=== PATIENT | male | born 1975 | race Hispanic/Latino ===

== ENCOUNTER 2019-11-07 20:07 | Inpatient (IN) | payer OTHER, SELFPAY ==
[~2019-11-07] VITALS: Ht 165.1 cm; Wt 57.7 kg
[2019-11-07 20:39] LABS: BASOPHILS % (AUTO) 0.2 % (0.0-5.0); EOSINOPHILS % (AUTO) 1.6 % (0.0-8.0); HEMATOCRIT 34.1 % (42-54); LYMPHOCYTES % (AUTO) 18.5 % (21.0-51.0); MEAN CORPUSCULAR HEMOGLOBIN 28.3 pg (27.0-33.0); MEAN CORPUSCULAR HGB CONC 33.4 g/dL (32.0-36.0); MEAN CORPUSCULAR VOLUME 84.6 fL (79-99); NEUTROPHILS % (AUTO) 67.3 % (40.0-77.0); PLATELET COUNT (AUTO) 514 K/uL (130-400); RED BLOOD CELL COUNT(AUTO) 4.03 MIL/uL (4.50-6.20); RED CELL DISTRIBUTION WIDTH 11.9 % (11.0-15.5)
[2019-11-07 20:49] LABS: ALBUMIN 2.1 g/dL (3.5-5.0); BILIRUBIN,TOTAL 0.3 mg/dL (0.2-1.0); POTASSIUM 4.7 mmol/L (3.5-5.1); TOTAL PROTEIN, SERUM 7.7 g/dL (6.0-8.3)
[2019-11-07] MEDS ORDERED: INSULIN HUMULIN R 100 UNIT/ML 3ML ONE (21:15)
[2019-11-07] MEDS ORDERED: LORAZEPAM 2 MG/ML 1 ML VIAL ONE (22:52)
[2019-11-07 23:52] LABS: APPEARANCE,URINE Clear (CLEAR); BILIRUBIN,URINE Negative (NEGATIVE); COLOR,URINE Yellow (YELLOW); GLUCOSE, URINE (UA) >=1000 mg/dL (NEGATIVE); KETONES,URINE 15 mg/dL (NEGATIVE); LEUKOCYTE ESTERASE ,URINE Negative (NEGATIVE); NITRATE,URINE Negative (NEGATIVE); OCCULT BLOOD,URINE Negative (NEGATIVE); PROTEIN,URINE Negative (NEGATIVE)
[2019-11-07 23:59] LABS: AMPHET/METH SCREEN,URINE NEGATIVE (NEGATIVE); BARBITURATE SCREEN, URINE NEGATIVE (NEGATIVE); BENZODIAZEPINES SCREEN,URINE NEGATIVE (NEGATIVE); CANNABINOID SCREEN,URINE NEGATIVE (NEGATIVE); COCAINE SCREEN,URINE NEGATIVE (NEGATIVE); OPIATE SCREEN,URINE NEGATIVE (NEGATIVE); PHENCYCLIDINE SCREEN,URINE NEGATIVE (NEGATIVE)
[2019-11-08] VITALS (8 sets, daily range): BP systolic 63–146; BP diastolic 34–96
[2019-11-08 00:34] LABS: BACTERIA,URINE Rare /HPF (None Seen); SQUAMOUS EPITHELIAL CELL,UR None Seen /HPF (0-2); WBC,URINE 0-1 /HPF (0-1)
[2019-11-08] MEDS ORDERED: GLUCAGON 1MG KIT 1 MG ML IM PRN (03:15)
[2019-11-08] MEDS ORDERED: ALBUMIN (HUMAN) 25% 50 ML IV SCH (03:15)
[2019-11-08] MEDS ORDERED: ONDANSETRON HCL 4 MG/2 ML VIAL IV PRN (03:15)
[2019-11-08] MEDS ORDERED: DEXTROSE 50%-WATER 50 ML DISP.SYRIN IV PRN ×2 (03:15→05:15)
[2019-11-08 03:47] LABS: BASOPHILS % (AUTO) 0.3 % (0.0-5.0); EOSINOPHILS % (AUTO) 2.3 % (0.0-8.0); HEMATOCRIT 30.1 % (42-54); LYMPHOCYTES % (AUTO) 27.5 % (21.0-51.0); MEAN CORPUSCULAR HEMOGLOBIN 28.5 pg (27.0-33.0); MEAN CORPUSCULAR HGB CONC 33.6 g/dL (32.0-36.0); MEAN CORPUSCULAR VOLUME 84.8 fL (79-99); MONOCYTES % (AUTO) 12.5 % (3.0-13.0); NEUTROPHILS % (AUTO) 56.9 % (40.0-77.0); PLATELET COUNT (AUTO) 495 K/uL (130-400); RED BLOOD CELL COUNT(AUTO) 3.55 MIL/uL (4.50-6.20); RED CELL DISTRIBUTION WIDTH 11.9 % (11.0-15.5); WHITE BLOOD COUNT (AUTO) 3.9 K/uL (4.8-10.8)
[2019-11-08 04:16] LABS: ALBUMIN 1.6 g/dL (3.5-5.0); BILIRUBIN,TOTAL 0.3 mg/dL (0.2-1.0); CREATININE 0.6 mg/dL (0.5-1.5); POTASSIUM 3.5 mmol/L (3.5-5.1); THYROID STIMULATING HORMONE 1.24 uIU/mL (0.36-3.74); TOTAL PROTEIN, SERUM 6.3 g/dL (6.0-8.3)
[2019-11-08] MEDS: INSULIN HUMULIN R 100 UNIT/ML 3ML SQ SCH ×4 (06:27→21:26)
[2019-11-08] MEDS: SODIUM CHLORIDE 0.9% 1000ML 1,000 ML IV SCH ×5 (06:27→16:35)
[2019-11-08] MEDS ORDERED: INSULIN HUMULIN R 100 UNIT/ML 3ML SQ SCH (07:30)
[2019-11-08] MEDS: FAMOTIDINE/PF 20 MG/2 ML VIAL IV SCH ×2 (09:04→21:25)
[2019-11-08] MEDS: ASPIRIN 81MG TAB.CHEW PO SCH (09:04)
[2019-11-08] MEDS: LOPERAMIDE HCL 2 MG CAP PO SCH (13:57)
[2019-11-09] VITALS (7 sets, daily range): BP systolic 63–155; BP diastolic 37–103
[2019-11-09] MEDS: SODIUM CHLORIDE 0.9% 1000ML 1,000 ML IV SCH ×2 (05:44→19:15)
[2019-11-09] MEDS: INSULIN HUMULIN R 100 UNIT/ML 3ML SQ SCH ×4 (06:34→21:33)
[2019-11-09] MEDS: ASPIRIN 81MG TAB.CHEW PO SCH (08:45)
[2019-11-09] MEDS: FAMOTIDINE/PF 20 MG/2 ML VIAL IV SCH ×2 (08:45→21:34)
[2019-11-09] MEDS ORDERED: SODIUM CHLORIDE 0.9% 1000ML 1,000 ML IV SCH ×2 (11:15→11:30)
[2019-11-09 11:29] LABS: BASOPHILS % (AUTO) 0.4 % (0.0-5.0); EOSINOPHILS % (AUTO) 1.3 % (0.0-8.0); HEMATOCRIT 30.2 % (42-54); LYMPHOCYTES % (AUTO) 34.5 % (21.0-51.0); MEAN CORPUSCULAR HEMOGLOBIN 28.2 pg (27.0-33.0); MEAN CORPUSCULAR HGB CONC 32.8 g/dL (32.0-36.0); MONOCYTES % (AUTO) 11.4 % (3.0-13.0); PLATELET COUNT (AUTO) 508 K/uL (130-400); RED BLOOD CELL COUNT(AUTO) 3.51 MIL/uL (4.50-6.20); WHITE BLOOD COUNT (AUTO) 4.5 K/uL (4.8-10.8)
[2019-11-09 11:39] LABS: ALBUMIN 1.9 g/dL (3.5-5.0); BILIRUBIN,TOTAL 0.2 mg/dL (0.2-1.0); CREATININE 0.8 mg/dL (0.5-1.5); POTASSIUM 3.8 mmol/L (3.5-5.1); TOTAL PROTEIN, SERUM 6.8 g/dL (6.0-8.3)
[2019-11-09] MEDS: LOPERAMIDE HCL 2 MG CAP PO SCH (11:45)
[2019-11-10] MEDS: INSULIN HUMULIN R 100 UNIT/ML 3ML SQ SCH ×4 (05:53→21:20)
[2019-11-10] MEDS ORDERED: LOPERAMIDE HCL 2 MG CAP PO PRN (06:15)
[2019-11-10 08:00] VITALS: BP 110/69
[2019-11-10] MEDS: ASPIRIN 81MG TAB.CHEW PO SCH (08:22)
[2019-11-10] MEDS: FAMOTIDINE/PF 20 MG/2 ML VIAL IV SCH ×2 (08:22→21:59)
[2019-11-10] MEDS: SODIUM CHLORIDE 0.9% 1000ML 1,000 ML IV SCH ×2 (09:20→21:59)
[2019-11-10 11:00] VITALS: BP_SYST 130; BP_SYST 159; BP_SYST 75; BP_DIAS 103; BP_DIAS 37; BP_DIAS 66
[2019-11-10 16:00] VITALS: BP 86/55
[2019-11-10 20:20] VITALS: BP_SYST 126; BP_SYST 76; BP_SYST 85; BP_DIAS 38; BP_DIAS 50; BP_DIAS 89
[2019-11-11 00:20] VITALS: BP 115/78
[2019-11-11] MEDS ORDERED: PHARMACY COMMUNICATION MISC SCH ×2 (02:15→03:30)
[2019-11-11] MEDS ORDERED: ERGOCALCIFEROL (VITAMIN D2) 50,000 UNIT CAPSULE PO ONE (02:15)
[2019-11-11] MEDS ORDERED: DOXYCYCLINE 100MG+NS 250ML IV SCH (03:00)
[2019-11-11] MEDS ORDERED: DOXYCYCLINE HYCLATE 100 MG TABLET PO ONE (03:14)
[2019-11-11] MEDS: CEFTRIAXONE SODIUM 1 GM IVP SCH ×2 (03:20→14:01)
[2019-11-11 04:20] VITALS: BP 118/81
[2019-11-11] MEDS: INSULIN LISPRO 100 UNIT/ML 3ML SQ SCH ×3 (06:31→17:14)
[2019-11-11] MEDS: INSULIN HUMULIN R 100 UNIT/ML 3ML SQ SCH ×4 (06:31→22:17)
[2019-11-11] MEDS ORDERED: METF-444 PO (06:40)
[2019-11-11] MEDS ORDERED: INSU3INS5 SQ (06:43)
[2019-11-11] MEDS ORDERED: AEC81 PO (06:43)
[2019-11-11 07:45] VITALS: BP 129/81
[2019-11-11 07:56] LABS: BASOPHILS % (AUTO) 0.2 % (0.0-5.0); EOSINOPHILS % (AUTO) 0.7 % (0.0-8.0); HEMATOCRIT 30.4 % (42-54); LYMPHOCYTES % (AUTO) 37.2 % (21.0-51.0); MEAN CORPUSCULAR HEMOGLOBIN 28.3 pg (27.0-33.0); MEAN CORPUSCULAR HGB CONC 33.6 g/dL (32.0-36.0); MEAN CORPUSCULAR VOLUME 84.4 fL (79-99); MONOCYTES % (AUTO) 8.5 % (3.0-13.0); NEUTROPHILS % (AUTO) 53.2 % (40.0-77.0); PLATELET COUNT (AUTO) 496 K/uL (130-400); RED CELL DISTRIBUTION WIDTH 11.9 % (11.0-15.5); WHITE BLOOD COUNT (AUTO) 4.5 K/uL (4.8-10.8)
[2019-11-11] MEDS ORDERED: IVERMECTIN 3 MG TAB PO SCH (08:00)
[2019-11-11 08:23] LABS: ALBUMIN 2.1 g/dL (3.5-5.0); BILIRUBIN,TOTAL 0.1 mg/dL (0.2-1.0); CREATININE 0.8 mg/dL (0.5-1.5); POTASSIUM 3.6 mmol/L (3.5-5.1); TOTAL PROTEIN, SERUM 6.8 g/dL (6.0-8.3)
[2019-11-11] MEDS ORDERED: ERGOCALCIFEROL (VITAMIN D2) 50,000 UNIT CAPSULE PO SCH (09:00)
[2019-11-11] MEDS ORDERED: ENOXAPARIN SODIUM 40 MG/0.4 ML SYRINGE SQ SCH (09:00)
[2019-11-11] MEDS: ASCORBIC ACID 500 MG TAB PO SCH (09:53)
[2019-11-11] MEDS: FAMOTIDINE/PF 20 MG/2 ML VIAL IV SCH ×2 (09:53→22:02)
[2019-11-11] MEDS: METHYLPREDNISOLONE SOD SUCC 40MG/ML 1ML IVP SCH ×3 (09:53→22:02)
[2019-11-11] MEDS: ZINC SULFATE 220 CAPSULE PO SCH (09:53)
[2019-11-11 11:00] VITALS: BP 135/88
[2019-11-11 16:00] VITALS: BP 99/68
[2019-11-11 20:24] VITALS: BP_SYST 110; BP_SYST 71; BP_SYST 98; BP_DIAS 38; BP_DIAS 65; BP_DIAS 78
[2019-11-11] MEDS ORDERED: INSULIN GLARGINE 100 UNITS/ML 10 ML VIAL SQ SCH (21:00)
[2019-11-11] MEDS ORDERED: ENOXAPARIN SODIUM 1 MG/KG SQ SCH (21:00)
[2019-11-11] MEDS: ENOXAPARIN SODIUM 60 MG/0.6 ML SQ SCH (22:02)
[2019-11-11] MEDS: DOXYCYCLINE HYCLATE 100 MG TABLET PO SCH (22:02)
[2019-11-12] VITALS (7 sets, daily range): BP systolic 123–164; BP diastolic 84–111
[2019-11-12] MEDS: CEFTRIAXONE SODIUM 1 GM IVP SCH ×2 (02:18→14:31)
[2019-11-12] MEDS: INSULIN HUMULIN R 100 UNIT/ML 3ML SQ SCH ×3 (06:25→16:26)
[2019-11-12] MEDS: INSULIN LISPRO 100 UNIT/ML 3ML SQ SCH ×3 (06:25→16:26)
[2019-11-12 07:39] LABS: HEMATOCRIT 30.3 % (42-54); LYMPHOCYTES % (AUTO) 14.6 % (21.0-51.0); MEAN CORPUSCULAR HEMOGLOBIN 27.8 pg (27.0-33.0); MEAN CORPUSCULAR VOLUME 84.2 fL (79-99); MONOCYTES % (AUTO) 4.6 % (3.0-13.0); NEUTROPHILS % (AUTO) 80.4 % (40.0-77.0); PLATELET COUNT (AUTO) 516 K/uL (130-400); RED CELL DISTRIBUTION WIDTH 12.1 % (11.0-15.5); WHITE BLOOD COUNT (AUTO) 7.2 K/uL (4.8-10.8)
[2019-11-12] MEDS ORDERED: IOHEXOL 350 MG/ML 100ML INFUS..BTL IV ONE (07:43)
[2019-11-12 07:55] LABS: ALBUMIN 2.3 g/dL (3.5-5.0); BILIRUBIN,TOTAL 0.2 mg/dL (0.2-1.0); CREATININE 0.8 mg/dL (0.5-1.5); POTASSIUM 4.2 mmol/L (3.5-5.1)
[2019-11-12 08:46] LABS: CRP QUANTITATIVE 14.2 mg/L (0.00-9.0)
[2019-11-12] MEDS: METHYLPREDNISOLONE SOD SUCC 40MG/ML 1ML IVP SCH ×2 (08:46→14:31)
[2019-11-12] MEDS: FAMOTIDINE/PF 20 MG/2 ML VIAL IV SCH (08:46)
[2019-11-12] MEDS: ZINC SULFATE 220 CAPSULE PO SCH (08:46)
[2019-11-12] MEDS: ASCORBIC ACID 500 MG TAB PO SCH (08:46)
[2019-11-12] MEDS: DOXYCYCLINE HYCLATE 100 MG TABLET PO SCH (08:46)
[2019-11-12] MEDS: ENOXAPARIN SODIUM 60 MG/0.6 ML SQ SCH (08:47)
[2019-11-12] MEDS ORDERED: ASCO500T10 PO (16:06)
[2019-11-12] MEDS ORDERED: DEXA6TAB7 PO (16:06)
[2019-11-12] MEDS ORDERED: DOXY100C40 PO (16:06)
[2019-11-12] MEDS ORDERED: ZINC220C6 PO (16:06)
[2019-11-12] MEDS ORDERED: ALBU8.5H8 IH (16:06)
== END 2019-11-12 17:30 | disposition home or self-care (01) | DRG 312 ==
LOC: EDH 20:07 → EDHIP 20:08 → 3AH 11-08 04:51
PROVIDERS: ADMIT Hospitalist; ATTEND Hospitalist
DX: I95.1 Orthostatic hypotension (principal); U07.1 COVID-19; J12.89 Other viral pneumonia; E87.1 Hypo-osmolality and hyponatremia; E11.65 Type 2 diabetes mellitus with hyperglycemia; R29.6 Repeated falls; D47.3 Essential (hemorrhagic) thrombocythemia
CPT/HCPCS: 36415; 70450; 71045; 71275; 80053; 80061; 80305; 81001; 82728; 82948; 83036; 83615; 84145; 84443; 84484; 85025; 85378; 86140; 86701; 86850; 86900; 86901; 87390; 87426; 93005; 93306; 93880; G0378; J0696; J1650; J1815; J2060; J2920; J3490; J7030; Q9967; U0003

== ENCOUNTER 2020-03-10 17:49 | Emergency (ER) | payer OTHER ==
[~2020-03-10 17:49] MED LIST: AEC81 PO; ALBU8.5H8 IH; ASCO500T10 PO; DEXA6TAB7 PO; DOXY100C40 PO; INSU3INS5 SQ; METF-444 PO; ZINC220C6 PO
[2020-03-10] MEDS ORDERED: KETOROLAC TROMETHAMINE 60 MG/2 ML VIAL ONE (18:57)
== END 2020-03-10 19:55 | disposition home or self-care (01) ==
LOC: EDH 17:49
DX: R07.82 Intercostal pain (principal); R10.11 Right upper quadrant pain; E11.9 Type 2 diabetes mellitus without complications; Z90.49 Acquired absence of other specified parts of digestive tract
CPT/HCPCS: 71101; 93005; 96372; 99283; J1885

== ENCOUNTER 2020-03-16 23:16 | Inpatient (IN) | payer OTHER ==
[~2020-03-16] VITALS: Ht 157.5 cm; Wt 66.8 kg
[2020-03-17 00:19] LABS: ABG OXYGEN SATURATION 83.9 % (95.0-99.0); BASE EXCESS,VENOUS BLOOD GAS -22.1 (-2.0-3.0); HCO3,VENOUS BLOOD GAS 5.9 (21.0-28.0); PCO2,VENOUS BLOOD GAS 20 (35-48); PH,VENOUS BLOOD GAS 7.088 (7.350-7.450)
[2020-03-17] MEDS ORDERED: SODIUM CHLORIDE 0.9% 1000ML 1,000 ML IV ONE ×2 (00:26→01:50)
[2020-03-17] MEDS ORDERED: ONDANSETRON HCL 4 MG/2 ML VIAL ONE ×2 (00:26→10:11)
[2020-03-17 00:31] LABS: BASOPHILS % (AUTO) 0.1 % (0.0-5.0); HEMATOCRIT 35.9 % (42-54); LYMPHOCYTES % (AUTO) 4.5 % (21.0-51.0); MEAN CORPUSCULAR HEMOGLOBIN 27.6 pg (27.0-33.0); MEAN CORPUSCULAR HGB CONC 30.6 g/dL (32.0-36.0); MEAN CORPUSCULAR VOLUME 90.2 fL (79-99); MONOCYTES % (AUTO) 5.8 % (3.0-13.0); NEUTROPHILS % (AUTO) 88.9 % (40.0-77.0); PLATELET COUNT (AUTO) 377 K/uL (130-400); RED BLOOD CELL COUNT(AUTO) 3.98 MIL/uL (4.50-6.20); RED CELL DISTRIBUTION WIDTH 12.8 % (11.0-15.5); WHITE BLOOD COUNT (AUTO) 10.1 K/uL (4.8-10.8)
[2020-03-17 00:51] LABS: CREATININE 1.9 mg/dL (0.5-1.5); POTASSIUM 5.4 mmol/L (3.5-5.1)
[2020-03-17 00:55] LABS: ALBUMIN 2.3 g/dL (3.5-5.0); BILIRUBIN,TOTAL 0.4 mg/dL (0.2-1.0); TOTAL PROTEIN, SERUM 8.3 g/dL (6.0-8.3)
[2020-03-17] MEDS ORDERED: INSULIN HUMULIN R 100 UNIT/ML 3ML ONE (01:49)
[2020-03-17] MEDS ORDERED: SODIUM CHLORIDE 0.9% 100 ML IV ONE (01:50)
[2020-03-17] MEDS ORDERED: MORPHINE SULFATE 2 MG/ML 1ML SYG IV PRN (04:00)
[2020-03-17] MEDS ORDERED: INSULIN REGULAR, HUMAN 3ML 100 UNIT in SODIUM CHLORIDE 0.9% 99 ML IV PRN ×2 (04:15)
[2020-03-17] MEDS ORDERED: CEFTRIAXONE SODIUM 1 GM ONE (04:38)
[2020-03-17] MEDS ORDERED: DEXTROSE 5 %-0.45 % NACL 1,000 ML IV PRN (07:30)
[2020-03-17] MEDS ORDERED: POTASSIUM CHLORIDE 10MEQ/100ML 100 ML IV PRN (07:30)
[2020-03-17] MEDS ORDERED: FAMOTIDINE/PF 20 MG/2 ML VIAL IV ONE (08:18)
[2020-03-17 08:20] LABS: BASE EXCESS,VENOUS BLOOD GAS -10.5 (-2.0-3.0); PCO2,VENOUS BLOOD GAS 32 (35-48); PH,VENOUS BLOOD GAS 7.291 (7.350-7.450)
[2020-03-17 08:33] LABS: POTASSIUM 3.7 mmol/L (3.5-5.1)
[2020-03-17] MEDS ORDERED: DEXTROSE 5 %-0.45 % NACL 1,000 ML IV ONE (10:36)
[2020-03-17] MEDS ORDERED: MAGNESIUM CITRATE 296 ML SOLUTION ONE (10:49)
[2020-03-17] MEDS ORDERED: LACTULOSE 20 GM/30 ML UDCUP ONE (10:49)
[2020-03-17 13:53] LABS: ABG OXYGEN SATURATION 89.2 % (95.0-99.0); HCO3,VENOUS BLOOD GAS 18.9 (21.0-28.0); PCO2,VENOUS BLOOD GAS 36 (35-48); PH,VENOUS BLOOD GAS 7.342 (7.350-7.450)
[2020-03-17 14:11] LABS: CREATININE 1.2 mg/dL (0.5-1.5); POTASSIUM 3.7 mmol/L (3.5-5.1)
[2020-03-17] MEDS: SODIUM CHLORIDE 0.9% 1000ML 1,000 ML IV SCH ×3 (15:00→22:30)
[2020-03-17] MEDS: CEFTRIAXONE SODIUM 1 GM IV SCH (15:00)
[2020-03-17] MEDS: FAMOTIDINE/PF 20 MG/2 ML VIAL IV SCH ×2 (15:00→20:05)
[2020-03-17 16:30] VITALS: BP 138/74
--- NOTE | 2020-03-17 16:30 | NUR ---
DC PLAN PATIENT IN ER NOT ABLE TO VISIT. PATIENT LIVES WITH GIRLFRIEND. INDEPENDENT ABLE TO PERFORM ADL'S. PATIENT HAS NO SERVICES OR DME'S. FEELS SAFE TO RETURN HOME. PER SISTER SAID HAS BEEN IN ER BEFORE AND WAS TOLD NEEDED TO HAVE BM. NOT SURE HOW LONG IT HAS BEEN. HAS GLUCOSE MACHINE AND MEDICATIONS. Addendum: 03/17/20 at 1633 by RADHA MOLINA RN CM Amended: Links added.
[2020-03-17] MEDS: INSULIN HUMULIN R 100 UNIT/ML 3ML SQ SCH ×3 (16:52→21:03)
[2020-03-17] MEDS: LACTATED RINGERS 1000ML 1,000 ML IV SCH ×2 (16:55→20:05)
[2020-03-17 17:00] VITALS: BP 145/87
[2020-03-17 17:22] LABS: CREATININE 1.1 mg/dL (0.5-1.5); POTASSIUM 3.6 mmol/L (3.5-5.1)
[2020-03-17] MEDS ORDERED: INSULIN GLARGINE 100 UNITS/ML 10 ML VIAL SQ ONE (17:30)
[2020-03-17 18:00] VITALS: BP 137/80
[2020-03-17 19:15] VITALS: BP 137/80
[2020-03-18] VITALS (12 sets, daily range): BP systolic 127–164; BP diastolic 59–97
[2020-03-18] MEDS: SODIUM CHLORIDE 0.9% 1000ML 1,000 ML IV SCH ×2 (03:30→08:04)
[2020-03-18 03:36] LABS: EOSINOPHILS % (AUTO) 0.1 % (0.0-8.0); HEMATOCRIT 25.3 % (42-54); LYMPHOCYTES % (AUTO) 10.3 % (21.0-51.0); MEAN CORPUSCULAR HEMOGLOBIN 27.9 pg (27.0-33.0); MEAN CORPUSCULAR HGB CONC 34.4 g/dL (32.0-36.0); MEAN CORPUSCULAR VOLUME 81.1 fL (79-99); NEUTROPHILS % (AUTO) 77.2 % (40.0-77.0); PLATELET COUNT (AUTO) 283 K/uL (130-400); RED BLOOD CELL COUNT(AUTO) 3.12 MIL/uL (4.50-6.20); RED CELL DISTRIBUTION WIDTH 11.9 % (11.0-15.5)
[2020-03-18 03:46] LABS: ALBUMIN 1.7 g/dL (3.5-5.0); BILIRUBIN,TOTAL 0.2 mg/dL (0.2-1.0); CREATININE 0.9 mg/dL (0.5-1.5); MAGNESIUM 1.6 mg/dL (1.80-2.40); POTASSIUM 3.1 mmol/L (3.5-5.1); TOTAL PROTEIN, SERUM 6.4 g/dL (6.0-8.3)
[2020-03-18] MEDS ORDERED: MAGNESIUM 2GM PREMIX 50ML 50 ML IV ONE (04:44)
[2020-03-18] MEDS ORDERED: MAGNESIUM 2GM PREMIX 50ML 50 ML IV PRN (04:45)
[2020-03-18] MEDS: CEFTRIAXONE SODIUM 1 GM IV SCH (04:48)
[2020-03-18] MEDS: INSULIN HUMULIN R 100 UNIT/ML 3ML SQ SCH ×7 (06:20→20:49)
--- NOTE | 2020-03-18 07:35 | NUR ---
DR. GONZALES IN ROOM SPEAKING WITH PT. RE:INSULIN ADJUSTMENTS AND PLAN OF CARE; QUESTIONS ANSWERED BY DR. GONZALES.
[2020-03-18] MEDS: FAMOTIDINE/PF 20 MG/2 ML VIAL IV SCH (07:52)
[2020-03-18] MEDS: LACTATED RINGERS 1000ML 1,000 ML IV SCH (07:53)
[2020-03-18] MEDS: INSULIN GLARGINE 100 UNITS/ML 10 ML VIAL SQ SCH (08:03)
--- NOTE | 2020-03-18 08:25 | NUR ---
DR. SPARROW IN ROOM SPEAKING WITH PT. RE:PLAN OF CARE.
[2020-03-18] MEDS: MAGNESIUM CHLORIDE 70 MG TABLET.SA PO SCH ×2 (10:07→20:49)
[2020-03-18] MEDS: POTASSIUM CHLORIDE 20 MEQ ERTAB PO SCH ×2 (10:07→19:57)
[2020-03-18] MEDS: ENOXAPARIN SODIUM 40 MG/0.4 ML SYRINGE SQ SCH (10:08)
--- NOTE | 2020-03-18 12:39 | NUR ---
REPORT TO Lindsey ACKERMAN RN.
--- NOTE | 2020-03-18 12:55 | NUR ---
FOLLOWED UP WITH PATIENT AT BEDSIDE PER CASE MANAGEMENT CONVERSATION YESTERDAY PATIENTS FAMILY HAS QUESTIONS ABOUT COMPLIANCE AND MEDICATIONS. SPOKE TO PATIENT AT BEDSIDE. [facility] HE FOLLOW WITH DR. CHERRY IN [place]. [facility] HAS ENOUGH MONEY TO GO TO THE MD REGULARLY BUT ADMITS SOMETIME HE DOES NOT GO. WHEN ASKED RE: MADAI, DENIES ANY FINANCIAL DIFFICULTY AFFORDING INSULIN, AND DECLINES REFRRAL TO [facility] Addendum: 03/18/20 at 1300 by ALISSA PRINCE RN CM Amended: Links added.
--- NOTE | 2020-03-18 13:12 | NUR ---
REPORT RECEIVED FROM KAMALA PENALOZA , PATIENT MOVED FROM ROOM 223 TO ROOM 401. DENIES PAIN AT THIS TIME ALERT AND ORIENTED X4 , GHANAIAN SPEAKING ONLY, ACCU CHECKS AC AND HS, LUNG SOUNDS CLEAR , DENIES PAIN AT THIS TIME, IV 20G IN RIGHT AND LEFT ARM, LAST BM REPORTED 03/16/20 LOOSE, PATIENT HAS BEEN CLEAR LIQUID ONLY NOW ON CC DIET. POTASSUIM 3.1 REPLACEMENT GIVEN AND MAG 1.6 WITH REPLACEMENT GIVEN AND SLOW-MAG ORDERED. PATIENT ON RA WITH O2 SATS 92-96% WILL CONTINUE TO MONITOR
[2020-03-18] MEDS: METOCLOPRAMIDE 5 MG TABLET PO SCH (17:15)
[2020-03-19] MEDS: CEFTRIAXONE SODIUM 1 GM IV SCH (02:45)
[2020-03-19 03:56] LABS: BASOPHILS % (AUTO) 0.2 % (0.0-5.0); EOSINOPHILS % (AUTO) 0.2 % (0.0-8.0); LYMPHOCYTES % (AUTO) 18.6 % (21.0-51.0); MEAN CORPUSCULAR HGB CONC 34.4 g/dL (32.0-36.0); MEAN CORPUSCULAR VOLUME 81.4 fL (79-99); MONOCYTES % (AUTO) 11.9 % (3.0-13.0); NEUTROPHILS % (AUTO) 68.9 % (40.0-77.0); PLATELET COUNT (AUTO) 247 K/uL (130-400); RED BLOOD CELL COUNT(AUTO) 3.07 MIL/uL (4.50-6.20); RED CELL DISTRIBUTION WIDTH 12.1 % (11.0-15.5); WHITE BLOOD COUNT (AUTO) 5.9 K/uL (4.8-10.8)
[2020-03-19 04:01] VITALS: BP 142/94
[2020-03-19 04:24] LABS: CREATININE 0.7 mg/dL (0.5-1.5); MAGNESIUM 1.8 mg/dL (1.80-2.40); POTASSIUM 3.5 mmol/L (3.5-5.1)
[2020-03-19] MEDS: METOCLOPRAMIDE 5 MG TABLET PO SCH ×2 (05:32→11:18)
[2020-03-19] MEDS: INSULIN HUMULIN R 100 UNIT/ML 3ML SQ SCH ×5 (05:50→16:16)
[2020-03-19 08:00] VITALS: BP 155/95
[2020-03-19] MEDS ORDERED: PANTOPRAZOLE SODIUM 40 MG TABLET.DR PO SCH (09:00)
[2020-03-19] MEDS: MAGNESIUM CHLORIDE 70 MG TABLET.SA PO SCH (09:50)
[2020-03-19] MEDS: POTASSIUM CHLORIDE 20 MEQ ERTAB PO SCH (09:51)
[2020-03-19] MEDS: ENOXAPARIN SODIUM 40 MG/0.4 ML SYRINGE SQ SCH (09:53)
[2020-03-19] MEDS: INSULIN GLARGINE 100 UNITS/ML 10 ML VIAL SQ SCH (10:07)
[2020-03-19 10:13] LABS: HEPATITIS Bs ANTIGEN SCREEN P Negative (Negative)
[2020-03-19] MEDS ORDERED: LACTULOSE 20 GM/30 ML UDCUP PO SCH (11:15)
[2020-03-19] MEDS ORDERED: LACTULOSE 20 GM/30 ML UDCUP ONE (11:15)
[2020-03-19 11:59] VITALS: BP 146/87
[2020-03-19] MEDS ORDERED: INSU100I49 SQ ×2 (15:26)
[2020-03-19 15:45] VITALS: BP 132/84
[2020-03-19] MEDS ORDERED: FLU VACC QS2020-21(6MOS UP)/PF 60 MCG/0.5 ML ML IM ONE (16:00)
--- NOTE | 2020-03-19 16:36 | NUR ---
DISCHARGED NOW USING TEACH BACK. INST GIVEN ON INSULIN DOSE CHANGES,GENERAL DIABETIC INFO. ON FOOT CARE DIET, MEDICATION, ETC. GIVEN. STRESSED IMPORTANCE OF CHECKING BLOOD SUGARS WHICH HE STATES DOES NOT CHECK OFTEN. VERBALIZES UNDERSTANDING OF ALL INST. HEART MONITOR REMOVED, SALINE LOCKS X2 ALSO REMOVED. DISCUSSED HYGIENE CARE TO AVOID SKIN PROBLEMS. WILL FOLLOW UP WITH DR. GONZALES IN 1 WEEK [address] PCP [address]. CHERRY IN [place].
[2020-03-19] MEDS ORDERED: INSULIN HUMULIN R 100 UNIT/ML 3ML SQ SCH (17:00)
--- NOTE | 2020-03-22 10:09 | NUR ---
Transitional Care - Post Discharge Note No answer. I called patient at number on file. The patient stated he was unable to hear me. Probably a bad connection. I told patient I would hang up and retry phone call. I called an additional two more times. There was no answer. I left a message identifying myself and requesting a call back.
== END 2020-03-19 16:45 | disposition home or self-care (01) | DRG 682 ==
LOC: EDH 23:16 → EDHIP 23:17 → 2DH 03-17 16:00 → 4AH 03-18 13:08
PROVIDERS: ADMIT Internal Medicine; ATTEND Internal Medicine
DX: N17.9 Acute kidney failure, unspecified (principal); E11.10 Type 2 diabetes mellitus with ketoacidosis without coma; E78.5 Hyperlipidemia, unspecified; N18.2 Chronic kidney disease, stage 2 (mild); E87.5 Hyperkalemia; E86.1 Hypovolemia; E86.0 Dehydration; E11.22 Type 2 diabetes mellitus with diabetic chronic kidney disease; K59.09 Other constipation; Z79.4 Long term (current) use of insulin; Z91.14 Patient's other noncompliance with medication regimen; Z87.891 Personal history of nicotine dependence; Z83.3 Family history of diabetes mellitus; Z90.49 Acquired absence of other specified parts of digestive tract; Z88.8 Allergy status to other drugs, medicaments and biological substances
CPT/HCPCS: 36415; 36600; 71045; 74018; 80048; 80053; 82010; 82435; 82803; 82947; 82948; 83036; 83605; 83690; 83735; 84132; 84145; 84295; 85025; 86704; 86706; 87040; 87088; 87340; 87520; 87900; 99291; G0378; J0696; J1650; J1815; J2405; J3475; J3490; J7030; J7042; J7120

== ENCOUNTER 2021-09-24 19:10 | Emergency (ER) | payer OTHER ==
[~2021-09-24] VITALS: Ht 162.6 cm; Wt 67.1 kg
[~2021-09-24 19:10] MED LIST changes: -DEXA6TAB7 PO; -DOXY100C40 PO; +INSU100I49 SQ; -INSU3INS5 SQ; -METF-444 PO
[2021-09-24] MEDS ORDERED: 0.9%NACL 1000ML 1,000 ML IV SCH ×2 (19:30→22:00)
[2021-09-24] MEDS ORDERED: IBUPROFEN 800 MG TAB PO ONE (19:30)
[2021-09-24] MEDS ORDERED: ACETAMINOPHEN 500 MG TABLET PO ONE (19:30)
[2021-09-24 19:39] LABS: BASOPHILS % (AUTO) 0.2 % (0.0-5.0); EOSINOPHILS % (AUTO) 0.1 % (0.0-8.0); HEMATOCRIT 25.5 % (42-54); MEAN CORPUSCULAR HEMOGLOBIN 28.1 pg (27.0-33.0); MEAN CORPUSCULAR HGB CONC 32.9 g/dL (32.0-36.0); MEAN CORPUSCULAR VOLUME 85.3 fL (79-99); MONOCYTES % (AUTO) 7.4 % (3.0-13.0); NEUTROPHILS % (AUTO) 81.6 % (40.0-77.0); PLATELET COUNT (AUTO) 290 K/uL (130-400); RED BLOOD CELL COUNT(AUTO) 2.99 MIL/uL (4.50-6.20); RED CELL DISTRIBUTION WIDTH 13.6 % (11.0-15.5); WHITE BLOOD COUNT (AUTO) 13.7 K/uL (4.8-10.8)
[2021-09-24] MEDS ORDERED: IPRATROPIUM/ALBUTEROL SULFATE 3 ML SOLUTION IH ONE ×2 (19:39→20:00)
[2021-09-24 19:48] LABS: CREATININE 2.8 mg/dL (0.5-1.5); POTASSIUM 5.4 mmol/L (3.5-5.1)
[2021-09-24 19:57] LABS: BILIRUBIN,TOTAL 0.4 mg/dL (0.2-1.0); TOTAL PROTEIN, SERUM 8.6 g/dL (6.0-8.3)
[2021-09-24] MEDS ORDERED: AZITHROMYCIN 250 MG TABLET PO ONE (20:00)
[2021-09-24] MEDS ORDERED: CEFTRIAXONE 1G VIAL IVP ONE (20:00)
[2021-09-24 20:26] LABS: APPEARANCE,URINE Turbid (CLEAR); BILIRUBIN,URINE Negative (NEGATIVE); COLOR,URINE Dark Yellow (YELLOW); GLUCOSE, URINE (UA) Negative (NEGATIVE); KETONES,URINE Trace mg/dL (NEGATIVE); LEUKOCYTE ESTERASE ,URINE Negative (NEGATIVE); NITRATE,URINE Negative (NEGATIVE); OCCULT BLOOD,URINE Moderate (NEGATIVE); PROTEIN,URINE 300 mg/dL (NEGATIVE); UROBILINOGEN,URINE 0.2 mg/dL (0.2-1.0)
[2021-09-24 20:37] LABS: BACTERIA,URINE Few /HPF (None Seen); MUCUS,URINE Moderate LPF (None Seen); SPERM,URINE Many /HPF (None Seen); SQUAMOUS EPITHELIAL CELL,UR Rare /HPF (0-2)
[2021-09-24] MEDS ORDERED: ACET-2247 PO (21:13)
[2021-09-24] MEDS ORDERED: AMOX1TAB16 PO (21:13)
[2021-09-24] MEDS ORDERED: ALBU8.5H8 IH (21:13)
[2021-09-24 22:45] VITALS: BP 99/52
== END 2021-09-24 22:51 | disposition home or self-care (01) ==
LOC: EDH 19:10
DX: J40 Bronchitis, not specified as acute or chronic (principal); E86.0 Dehydration; Z20.822 Contact with and (suspected) exposure to COVID-19; E11.9 Type 2 diabetes mellitus without complications; Z79.82 Long term (current) use of aspirin; Z90.49 Acquired absence of other specified parts of digestive tract
CPT/HCPCS: 36415; 71045; 80053; 81001; 82550; 83605; 84484; 85025; 86140; 87040 ×2; 87635; 87804 ×2; 87880; 94640; 96361; 96374; 99285; C9803; J0696; J7030

== ENCOUNTER 2021-09-29 15:55 | Inpatient (IN) | payer OTHER ==
[~2021-09-29] VITALS: Ht 165.1 cm; Wt 64.4 kg
[~2021-09-29 15:55] MED LIST changes: +ACET-2247 PO; +AMOX1TAB16 PO
[2021-09-29 17:39] LABS: BASOPHILS % (AUTO) 0.1 % (0.0-5.0); EOSINOPHILS % (AUTO) 0.3 % (0.0-8.0); HEMATOCRIT 24.6 % (42-54); LYMPHOCYTES % (AUTO) 6.4 % (21.0-51.0); MEAN CORPUSCULAR HEMOGLOBIN 27.3 pg (27.0-33.0); MEAN CORPUSCULAR HGB CONC 33.3 g/dL (32.0-36.0); MONOCYTES % (AUTO) 5.1 % (3.0-13.0); PLATELET COUNT (AUTO) 355 K/uL (130-400); RED CELL DISTRIBUTION WIDTH 14.1 % (11.0-15.5); WHITE BLOOD COUNT (AUTO) 17.6 K/uL (4.8-10.8)
[2021-09-29 18:00] LABS: CREATININE 2.8 mg/dL (0.5-1.5); POTASSIUM 4.5 mmol/L (3.5-5.1)
[2021-09-29 18:05] LABS: ALBUMIN 2.2 g/dL (3.5-5.0); BILIRUBIN,TOTAL 0.4 mg/dL (0.2-1.0); TOTAL PROTEIN, SERUM 8.2 g/dL (6.0-8.3)
[2021-09-29] MEDS ORDERED: VANCOMYCIN 1G/250ML KIT 250 ML IV ONE (18:22)
[2021-09-29] MEDS ORDERED: VANCOMYCIN 1G VIAL IVPB ONE (18:30)
[2021-09-29] MEDS ORDERED: 0.9%NACL 1000ML 1,000 ML IV ONE ×2 (18:30)
[2021-09-29 18:36] LABS: APPEARANCE,URINE CLEAR (CLEAR); BILIRUBIN,URINE NEGATIVE (NEGATIVE); COLOR,URINE YELLOW (YELLOW); GLUCOSE, URINE (UA) NEGATIVE (NEGATIVE); KETONES,URINE NEGATIVE (NEGATIVE); LEUKOCYTE ESTERASE ,URINE NEGATIVE (NEGATIVE); NITRATE,URINE NEGATIVE (NEGATIVE); OCCULT BLOOD,URINE SMALL (NEGATIVE); PH,URINE 5.5 (5.0-8.0); PROTEIN,URINE 100 mg/dL (NEGATIVE); UROBILINOGEN,URINE 0.2 mg/dL (0.2-1.0)
[2021-09-29] MEDS: ZOSYN 3.375GM +NS 50ML IV SCH (18:38)
[2021-09-29 18:52] LABS: BACTERIA,URINE Few /HPF (None Seen); MUCUS,URINE Moderate LPF (None Seen); SQUAMOUS EPITHELIAL CELL,UR Few /HPF (0-2)
[2021-09-29 18:53] LABS: AMORPHOUS SEDIMENT,UR Moderate /LPF (None Seen)
[2021-09-29 18:56] LABS: ABG BASE EXCESS -8.5 mmol/L (-2.0-3.0); ABG HCO3 15.3 mmol/L (21.0-28.0); ABG OXYGEN SATURATION 92.2 % (95.0-99.0); ABG PCO2 28 mmHg (35-48)
[2021-09-29] MEDS ORDERED: INSULIN HUMULIN R 100 UNIT/ML 3ML SQ ONE (19:30)
[2021-09-29] MEDS ORDERED: 0.9%NACL 1000ML 1,000 ML IV SCH (21:30)
[2021-09-29] MEDS ORDERED: GLUCAGON 1MG KIT 1 MG ML IM PRN (21:30)
[2021-09-29] MEDS ORDERED: MORPHINE 2 MG SYG IV PRN (21:30)
[2021-09-29] MEDS ORDERED: DEXTROSE 50%-WATER 50 ML DISP.SYRIN IV PRN (21:30)
[2021-09-29] MEDS ORDERED: ONDANSETRON 4MG INJ IV PRN (21:30)
[2021-09-29] MEDS ORDERED: HYDRALAZINE 20MG/ML VIAL IV PRN (21:30)
[2021-09-29] MEDS ORDERED: ACETAMINOPHEN WITH CODEINE 1 TAB TAB PO PRN (21:30)
[2021-09-29] MEDS ORDERED: DiphenhydrAMINE HCL 50 MG/ML VIAL IV PRN (21:30)
[2021-09-30] MEDS: 0.9%NACL 1000ML 1,000 ML IV SCH ×4 (00:08→23:30)
[2021-09-30] MEDS: INSULIN HUMULIN R 100 UNIT/ML 3ML SQ SCH ×5 (00:08→21:36)
[2021-09-30 00:30] LABS: POTASSIUM 4.4 mmol/L (3.5-5.1)
[2021-09-30 01:56] LABS: CREATININE 1.9 mg/dL (0.5-1.5); POTASSIUM 4.2 mmol/L (3.5-5.1)
[2021-09-30] MEDS: ZOSYN 3.375GM +NS 50ML IV SCH ×3 (03:44→18:38)
[2021-09-30 04:04] LABS: ABG BASE EXCESS -6.3 mmol/L (-2.0-3.0); ABG HCO3 16.7 mmol/L (21.0-28.0); ABG OXYGEN SATURATION 97.7 % (95.0-99.0); ABG PCO2 27 mmHg (35-48)
[2021-09-30 06:08] LABS: CHLORIDE,URINE RANDOM < 22 mmol/L (110-250); POTASSIUM,URINE RANDOM 39 mmol/L (25-125); SODIUM,URINE RANDOM 16 mmol/l (40-220)
[2021-09-30 06:55] LABS: CREATININE 1.8 mg/dL (0.5-1.5); POTASSIUM 4.1 mmol/L (3.5-5.1)
[2021-09-30 07:14] LABS: MEAN CORPUSCULAR HEMOGLOBIN 27.8 pg (27.0-33.0); MEAN CORPUSCULAR HGB CONC 33.5 g/dL (32.0-36.0); MEAN CORPUSCULAR VOLUME 83.1 fL (79-99); PLATELET COUNT (AUTO) 361 K/uL (130-400); RED BLOOD CELL COUNT(AUTO) 2.55 MIL/uL (4.50-6.20); RED CELL DISTRIBUTION WIDTH 14.2 % (11.0-15.5); WHITE BLOOD COUNT (AUTO) 14.7 K/uL (4.8-10.8)
[2021-09-30 08:06] LABS: BASOPHILS % (AUTO) 0.1 % (0.0-5.0); EOSINOPHILS % (AUTO) 0.2 % (0.0-8.0); LYMPHOCYTES % (AUTO) 7.6 % (21.0-51.0); MONOCYTES % (AUTO) 6.8 % (3.0-13.0); NEUTROPHILS % (AUTO) 84.5 % (40.0-77.0)
[2021-09-30 08:09] LABS: PROTHROMBIN TIME 10.9 SEC (9.6-11.6)
[2021-09-30 08:10] LABS: PARTIAL THROMBOPLASTIN TIME 32.5 SEC (26.3-35.5)
[2021-09-30 08:18] VITALS: BP 111/61
[2021-09-30 08:25] LABS: HEMATOCRIT 21.2 % (42-54)
[2021-09-30] MEDS: FAMOTIDINE 20MG VIAL IV SCH ×2 (10:41→19:52)
[2021-09-30 11:00] VITALS: BP 109/63
[2021-09-30 16:00] VITALS: BP_SYST 120; BP_SYST 154; BP_DIAS 74; BP_DIAS 75
[2021-09-30] MEDS: Vitamin B Complex/Vit C/Folic Acid PO SCH (17:31)
[2021-09-30 20:00] VITALS: BP 142/84
[2021-10-01] VITALS: BP 138/79
[2021-10-01] MEDS ORDERED: ACETAMINOPHEN 325 MG TAB PO PRN
[2021-10-01] MEDS: ZOSYN 3.375GM +NS 50ML IV SCH ×3 (03:25→17:59)
[2021-10-01 04:00] VITALS: BP 130/78
[2021-10-01 04:38] LABS: BASOPHILS % (AUTO) 0.1 % (0.0-5.0); EOSINOPHILS % (AUTO) 0.1 % (0.0-8.0); LYMPHOCYTES % (AUTO) 7.7 % (21.0-51.0); MEAN CORPUSCULAR HEMOGLOBIN 27.5 pg (27.0-33.0); MEAN CORPUSCULAR VOLUME 83.3 fL (79-99); PLATELET COUNT (AUTO) 401 K/uL (130-400); RED CELL DISTRIBUTION WIDTH 14.5 % (11.0-15.5); WHITE BLOOD COUNT (AUTO) 15.6 K/uL (4.8-10.8)
[2021-10-01 04:48] LABS: INR 1.08 (0.85-1.15); PROTHROMBIN TIME 11.7 SEC (9.6-11.6)
[2021-10-01 04:50] LABS: % IRON SATURATION 10.1 % (30-44)
[2021-10-01 05:01] LABS: ALBUMIN 1.6 g/dL (3.5-5.0); BILIRUBIN,TOTAL 0.3 mg/dL (0.2-1.0); CREATININE 1.5 mg/dL (0.5-1.5); PHOSPHORUS 3.1 mg/dL (2.5-4.9); POTASSIUM 4.7 mmol/L (3.5-5.1); TOTAL PROTEIN, SERUM 6.6 g/dL (6.0-8.3)
[2021-10-01] MEDS: INSULIN HUMULIN R 100 UNIT/ML 3ML SQ SCH ×3 (06:30→22:01)
[2021-10-01 07:30] VITALS: BP 145/85
[2021-10-01] MEDS: Vitamin B Complex/Vit C/Folic Acid PO SCH (09:44)
[2021-10-01] MEDS: FAMOTIDINE 20MG VIAL IV SCH ×2 (09:44→21:57)
[2021-10-01] MEDS: 0.9%NACL 1000ML 1,000 ML IV SCH ×2 (10:03→23:30)
[2021-10-01 11:00] VITALS: BP 138/68
[2021-10-01 16:00] VITALS: BP 131/75
[2021-10-01] MEDS: IRON SUCROSE COMPLEX 100 MG/5 ML VIAL IVP SCH (17:59)
[2021-10-01 20:00] VITALS: BP 117/80
[2021-10-02] VITALS: BP 127/81
[2021-10-02] MEDS: ZOSYN 3.375GM +NS 50ML IV SCH ×3 (02:12→19:01)
[2021-10-02 04:00] VITALS: BP 127/82
[2021-10-02] MEDS: INSULIN HUMULIN R 100 UNIT/ML 3ML SQ SCH ×4 (06:33→21:00)
[2021-10-02] MEDS: 0.9%NACL 1000ML 1,000 ML IV SCH ×2 (06:35→19:02)
[2021-10-02 07:30] VITALS: BP 129/85
[2021-10-02 08:22] LABS: HEMATOCRIT 23.8 % (42-54); MEAN CORPUSCULAR HEMOGLOBIN 27.5 pg (27.0-33.0); MEAN CORPUSCULAR HGB CONC 32.4 g/dL (32.0-36.0); PLATELET COUNT (AUTO) 432 K/uL (130-400); RED CELL DISTRIBUTION WIDTH 14.8 % (11.0-15.5); WHITE BLOOD COUNT (AUTO) 12.9 K/uL (4.8-10.8)
[2021-10-02 08:39] LABS: INR 1.05 (0.85-1.15); PROTHROMBIN TIME 11.4 SEC (9.6-11.6)
[2021-10-02 08:40] LABS: CREATININE 1.3 mg/dL (0.5-1.5); POTASSIUM 4.5 mmol/L (3.5-5.1)
[2021-10-02 08:41] LABS: PARTIAL THROMBOPLASTIN TIME 29.7 SEC (26.3-35.5)
[2021-10-02 08:55] LABS: LYMPHOCYTES % (MANUAL) 5 % (22-44); MAN.DIFF COMMENT-IMPRESSION MANUAL DIFFERENTIAL; MONOCYTES % (MANUAL) 1 % (2-9); PLATELET MORPHOLOGY COMMENT ADEQUATE; SEGMENTED NEUTROPHILS % 94 % (40-70)
[2021-10-02 08:59] LABS: % IRON SATURATION 35.8 % (30-44)
[2021-10-02] MEDS ORDERED: IRON SUCROSE COMPLEX 100 MG in 0.9%NACL 50ML 50 ML IV SCH (09:00)
[2021-10-02] MEDS: IRON SUCROSE COMPLEX 100 MG/5 ML VIAL IVP SCH (10:26)
[2021-10-02] MEDS: Vitamin B Complex/Vit C/Folic Acid PO SCH (10:26)
[2021-10-02] MEDS: FAMOTIDINE 20MG VIAL IV SCH ×2 (10:27→22:18)
[2021-10-02 11:00] VITALS: BP 153/92
[2021-10-02 16:00] VITALS: BP 174/98
[2021-10-02 20:00] VITALS: BP 166/91
[2021-10-03] VITALS (16 sets, daily range): BP systolic 149–183; BP diastolic 77–97
[2021-10-03] MEDS: INSULIN HUMULIN R 100 UNIT/ML 3ML SQ SCH ×3 (07:30→17:50)
[2021-10-03 07:37] LABS: BASOPHILS % (AUTO) 0.2 % (0.0-5.0); EOSINOPHILS % (AUTO) 0.9 % (0.0-8.0); HEMATOCRIT 27.3 % (42-54); LYMPHOCYTES % (AUTO) 10.9 % (21.0-51.0); MEAN CORPUSCULAR HEMOGLOBIN 27.8 pg (27.0-33.0); MEAN CORPUSCULAR HGB CONC 33.3 g/dL (32.0-36.0); MEAN CORPUSCULAR VOLUME 83.5 fL (79-99); MONOCYTES % (AUTO) 8.3 % (3.0-13.0); NEUTROPHILS % (AUTO) 78.4 % (40.0-77.0); NUCLEATED RED BLOOD CELLS 0.2 % (0.0-0.19); PLATELET COUNT (AUTO) 542 K/uL (130-400); RED BLOOD CELL COUNT(AUTO) 3.27 MIL/uL (4.50-6.20); RED CELL DISTRIBUTION WIDTH 14.7 % (11.0-15.5)
[2021-10-03] MEDS: Vitamin B Complex/Vit C/Folic Acid PO SCH (08:08)
[2021-10-03] MEDS: IRON SUCROSE COMPLEX 100 MG/5 ML VIAL IVP SCH (08:49)
[2021-10-03] MEDS: FAMOTIDINE 20MG VIAL IV SCH ×2 (08:49→20:52)
[2021-10-03 09:24] LABS: ALBUMIN 1.7 g/dL (3.5-5.0); BILIRUBIN,TOTAL 0.3 mg/dL (0.2-1.0); CREATININE 1.1 mg/dL (0.5-1.5); POTASSIUM 4.5 mmol/L (3.5-5.1); TOTAL PROTEIN, SERUM 6.9 g/dL (6.0-8.3)
[2021-10-03] MEDS: ZOSYN 3.375GM +NS 50ML IV SCH ×2 (10:37→17:47)
[2021-10-03] MEDS ORDERED: MIDAZOLAM HCL 1 MG/ML 2ML VIAL ONE (12:04)
[2021-10-03] MEDS ORDERED: SUCCINYLCHOLINE CHLORIDE 20 MG/ML 10 ML VIAL ONE (12:04)
[2021-10-03] MEDS ORDERED: DEXAMETHASONE SOD PHOSPHATE 10MG/ML 1ML VIAL ONE (12:04)
[2021-10-03] MEDS ORDERED: PROPOFOL 10 MG/ML 20ML VIAL IV ONE (12:05)
[2021-10-03] MEDS ORDERED: ONDANSETRON 4MG INJ ONE (12:05)
[2021-10-03] MEDS ORDERED: GLYCOPYRROLATE 1 MG/5 ML SYRINGE ONE (12:05)
[2021-10-03] MEDS ORDERED: NEOSTIGMINE 5MG/5ML SYR IV ONE (12:05)
[2021-10-03] MEDS ORDERED: FENTANYL CITRATE PF 50 MCG/1 ML 2ML VIAL ONE (12:06)
[2021-10-03] MEDS ORDERED: ROCURONIUM 10MG/1ML SYR 10 MG/ML ML ONE (12:06)
[2021-10-03] MEDS ORDERED: LIDOCAINE HCL-MPF 2% 5ML VIAL ONE (12:08)
[2021-10-03] MEDS ORDERED: LIDOCAINE HCL MPF 1% 5ML VIAL ONE (12:08)
[2021-10-03] MEDS ORDERED: LIDOCAINE HCL-MPF 2% 10ML AMP IJ ONE (12:08)
[2021-10-03] MEDS ORDERED: CEFAZOLIN SODIUM 1 GM VIAL ONE ×2 (12:49→12:58)
[2021-10-03] MEDS ORDERED: KETAMINE 50MG/ML SYRINGE 50 MG/ML DISP.SYRIN IV ONE (12:58)
[2021-10-03] MEDS: 0.9%NACL 1000ML 1,000 ML IV SCH ×2 (15:54→23:30)
[2021-10-03] MEDS ORDERED: ACETAMINOPHEN WITH CODEINE 1 TAB TAB PO PRN (16:00)
[2021-10-03] MEDS: INSULIN GLARGINE 100 UNITS/ML 10 ML VIAL SQ SCH (20:51)
[2021-10-03] MEDS: MORPHINE 2 MG SYG IVP PRN (22:18)
[2021-10-04 00:12] VITALS: BP 157/86
[2021-10-04] MEDS: ZOSYN 3.375GM +NS 50ML IV SCH ×3 (02:35→17:53)
[2021-10-04 03:53] VITALS: BP 149/84
[2021-10-04] MEDS: 0.9%NACL 1000ML 1,000 ML IV SCH ×3 (04:21→23:30)
[2021-10-04 05:31] LABS: HEMATOCRIT 26.4 % (42-54); MEAN CORPUSCULAR HEMOGLOBIN 28.1 pg (27.0-33.0); MEAN CORPUSCULAR HGB CONC 33.7 g/dL (32.0-36.0); MEAN CORPUSCULAR VOLUME 83.3 fL (79-99); RED BLOOD CELL COUNT(AUTO) 3.17 MIL/uL (4.50-6.20); RED CELL DISTRIBUTION WIDTH 14.6 % (11.0-15.5); WHITE BLOOD COUNT (AUTO) 9.3 K/uL (4.8-10.8)
[2021-10-04 05:52] LABS: CREATININE 1.2 mg/dL (0.5-1.5); POTASSIUM 3.9 mmol/L (3.5-5.1)
[2021-10-04] MEDS: INSULIN HUMULIN R 100 UNIT/ML 3ML SQ SCH ×6 (06:43→21:23)
[2021-10-04 08:00] VITALS: BP 145/87
[2021-10-04] MEDS: FAMOTIDINE 20MG VIAL IV SCH ×2 (09:44→19:53)
[2021-10-04] MEDS: IRON SUCROSE COMPLEX 100 MG/5 ML VIAL IVP SCH (09:44)
[2021-10-04] MEDS: Vitamin B Complex/Vit C/Folic Acid PO SCH (09:44)
[2021-10-04] MEDS: MORPHINE 2 MG SYG IVP PRN (09:55)
[2021-10-04 12:00] VITALS: BP 146/85
[2021-10-04 16:00] VITALS: BP 122/77
[2021-10-04 20:00] VITALS: BP 154/87
[2021-10-04] MEDS: INSULIN GLARGINE 100 UNITS/ML 10 ML VIAL SQ SCH (21:22)
[2021-10-05] VITALS: BP 137/85
[2021-10-05] MEDS: ZOSYN 3.375GM +NS 50ML IV SCH ×2 (01:50→11:14)
[2021-10-05 04:00] VITALS: BP 137/90
[2021-10-05 05:04] LABS: CREATININE 1.2 mg/dL (0.5-1.5); POTASSIUM 3.5 mmol/L (3.5-5.1)
[2021-10-05 05:23] LABS: HEMATOCRIT 26.7 % (42-54); MEAN CORPUSCULAR HEMOGLOBIN 27.5 pg (27.0-33.0); MEAN CORPUSCULAR HGB CONC 32.2 g/dL (32.0-36.0); MEAN CORPUSCULAR VOLUME 85.3 fL (79-99); RED BLOOD CELL COUNT(AUTO) 3.13 MIL/uL (4.50-6.20); RED CELL DISTRIBUTION WIDTH 14.6 % (11.0-15.5); WHITE BLOOD COUNT (AUTO) 8.5 K/uL (4.8-10.8)
[2021-10-05] MEDS: INSULIN HUMULIN R 100 UNIT/ML 3ML SQ SCH ×4 (05:56→11:54)
[2021-10-05 08:00] VITALS: BP 154/98
[2021-10-05] MEDS: FAMOTIDINE 20MG VIAL IV SCH (09:06)
[2021-10-05] MEDS: Vitamin B Complex/Vit C/Folic Acid PO SCH (09:06)
[2021-10-05] MEDS: IRON SUCROSE COMPLEX 100 MG/5 ML VIAL IVP SCH (09:06)
[2021-10-05] MEDS ORDERED: AMOX1TAB16 PO (11:38)
[2021-10-05] MEDS ORDERED: INSU10VI3 SQ ×2 (11:38)
[2021-10-05] MEDS ORDERED: CLIN-141 PO (11:38)
[2021-10-05 12:03] VITALS: BP 129/82
== END 2021-10-05 16:45 | disposition home or self-care (01) | DRG 853 ==
LOC: EDH 15:55 → EDHIP 15:56 → 4CH 09-30 08:18
PROVIDERS: ADMIT Hospitalist; ATTEND Hospitalist
PROC: 30233N1 Transfusion of Nonautologous Red Blood Cells into Peripheral Vein, Percutaneous Approach (ICD-10-PCS; 2021-10-01)
PROC: 0Y6J0Z3 Detachment at Left Lower Leg, Low, Open Approach (ICD-10-PCS; principal; 2021-10-03 11:30)
DX: A41.9 Sepsis, unspecified organism (principal); A48.0 Gas gangrene; M72.6 Necrotizing fasciitis; E11.52 Type 2 diabetes mellitus with diabetic peripheral angiopathy with gangrene; N17.9 Acute kidney failure, unspecified; L03.90 Cellulitis, unspecified; M86.8X7 Other osteomyelitis, ankle and foot; E78.5 Hyperlipidemia, unspecified; I10 Essential (primary) hypertension; Z20.822 Contact with and (suspected) exposure to COVID-19; Z90.49 Acquired absence of other specified parts of digestive tract; E11.621 Type 2 diabetes mellitus with foot ulcer; L97.529 Non-pressure chronic ulcer of other part of left foot with unspecified severity; E11.65 Type 2 diabetes mellitus with hyperglycemia; D64.9 Anemia, unspecified; L97.519 Non-pressure chronic ulcer of other part of right foot with unspecified severity; Z83.3 Family history of diabetes mellitus; E11.69 Type 2 diabetes mellitus with other specified complication; E11.40 Type 2 diabetes mellitus with diabetic neuropathy, unspecified
CPT/HCPCS: 36415; 36600; 73630; 73718; 76770; 80048; 80051; 80053; 81001; 82010; 82570; 82803; 82948; 83540; 83550; 83605; 84100; 84156; 85025; 85027; 85610; 85730; 86850; 86900; 86901; 86923; 87040; 87070; 87076; 87077; 87186; 87635; 97039; G0378; J0330; J0690; J1100; J1756; J1815; J2250; J2405; J2543; J2704; J2710; J3010; J3370; J3490; J7030; P9016

== ENCOUNTER 2021-11-21 00:25 | Inpatient (IN) | payer OTHER ==
[~2021-11-21] VITALS: Ht 167.6 cm; Wt 65.8 kg
[~2021-11-21 00:25] MED LIST changes: -AEC81 PO; -ASCO500T10 PO; +CLIN-141 PO; -INSU100I49 SQ; +INSU10VI3 SQ; -ZINC220C6 PO
[2021-11-21 01:10] LABS: BASOPHILS % (AUTO) 0.1 % (0.0-5.0); HEMATOCRIT 24.5 % (42-54); LYMPHOCYTES % (AUTO) 22.9 % (21.0-51.0); MEAN CORPUSCULAR HEMOGLOBIN 28.9 pg (27.0-33.0); MEAN CORPUSCULAR HGB CONC 33.9 g/dL (32.0-36.0); MEAN CORPUSCULAR VOLUME 85.4 fL (79-99); MONOCYTES % (AUTO) 8.8 % (3.0-13.0); NEUTROPHILS % (AUTO) 66.7 % (40.0-77.0); PLATELET COUNT (AUTO) 224 K/uL (130-400); RED BLOOD CELL COUNT(AUTO) 2.87 MIL/uL (4.50-6.20); RED CELL DISTRIBUTION WIDTH 14.3 % (11.0-15.5); WHITE BLOOD COUNT (AUTO) 11.2 K/uL (4.8-10.8)
[2021-11-21 01:19] LABS: POTASSIUM 4.4 mmol/L (3.5-5.1)
[2021-11-21 01:24] LABS: ALBUMIN 2.8 g/dL (3.5-5.0); TOTAL PROTEIN, SERUM 7.5 g/dL (6.0-8.3)
[2021-11-21 01:38] LABS: CRP QUANTITATIVE 262.4 mg/L (0.00-9.0)
[2021-11-21 02:13] LABS: ERYTHROCYTE SEDIMENTATION RATE 80 MM/HR (0-15)
[2021-11-21] MEDS ORDERED: ACETAMINOPHEN 325 MG TAB PO PRN (04:30)
[2021-11-21] MEDS ORDERED: HYDROMORPHONE 1 MG INJ IV PRN (04:30)
[2021-11-21] MEDS ORDERED: HYDROCODONE/ACETAMINOPHEN 5/325 MG TAB PO PRN (04:30)
[2021-11-21] MEDS ORDERED: VANCOMYCIN PROTOCOL PER PHARMACY IV PRN (04:30)
[2021-11-21] MEDS ORDERED: ONDANSETRON 4MG INJ IV PRN (04:30)
[2021-11-21] MEDS ORDERED: VANCOMYCIN 1G/250ML KIT 250 ML IV SCH (04:30)
[2021-11-21] MEDS: 0.9%NACL 1000ML 1,000 ML IV SCH (04:49)
[2021-11-21] MEDS: CEFEPIME HCL 2 GM VIAL IVP SCH (04:49)
[2021-11-21 05:12] LABS: INR 0.93 (0.85-1.15); PROTHROMBIN TIME 9.8 SEC (9.6-11.6)
[2021-11-21 05:18] LABS: HEMOGLOBIN A1C 9.4 % (4.0-6.0)
[2021-11-21 05:19] LABS: MAGNESIUM 1.7 mg/dL (1.80-2.40); PHOSPHORUS 4.3 mg/dL (2.5-4.9)
[2021-11-21 05:29] LABS: PARTIAL THROMBOPLASTIN TIME 29.3 SEC (26.3-35.5)
[2021-11-21 05:55] VITALS: BP 139/72
[2021-11-21] MEDS ORDERED: METF-446 PO (06:15)
[2021-11-21] MEDS ORDERED: LISI10TA24 PO (06:15)
[2021-11-21] MEDS ORDERED: SITA100T12 PO (06:15)
[2021-11-21] MEDS ORDERED: ATOR10 PO (06:15)
[2021-11-21 07:50] VITALS: BP 125/77
[2021-11-21] MEDS: FAMOTIDINE 20MG VIAL IV SCH (10:44)
[2021-11-21] MEDS: VANCOMYCIN 1G/250ML KIT 250 ML IV SCH (10:44)
[2021-11-21 11:55] VITALS: BP 147/92
[2021-11-21 16:45] VITALS: BP 140/89
[2021-11-21 20:00] VITALS: BP 149/87
[2021-11-21] MEDS: MUPIROCIN OINTMENT 22 GM TUBE TP SCH ×2 (21:00→21:53)
[2021-11-21] MEDS: HEPARIN 5,000 UNIT VIAL SQ SCH (22:06)
[2021-11-22] VITALS: BP 153/90
[2021-11-22] MEDS: CEFEPIME HCL 2 GM VIAL IVP SCH (03:27)
[2021-11-22] MEDS: 0.9%NACL 1000ML 1,000 ML IV SCH (03:27)
[2021-11-22 04:00] VITALS: BP 137/83
[2021-11-22 05:12] LABS: CREATININE 1.3 mg/dL (0.5-1.5); POTASSIUM 4.3 mmol/L (3.5-5.1)
[2021-11-22 05:28] LABS: BASOPHILS % (AUTO) 0.4 % (0.0-5.0); EOSINOPHILS % (AUTO) 2.1 % (0.0-8.0); HEMATOCRIT 24.6 % (42-54); LYMPHOCYTES % (AUTO) 33.5 % (21.0-51.0); MEAN CORPUSCULAR HEMOGLOBIN 28.3 pg (27.0-33.0); MEAN CORPUSCULAR HGB CONC 33.3 g/dL (32.0-36.0); MEAN CORPUSCULAR VOLUME 84.8 fL (79-99); MONOCYTES % (AUTO) 9.1 % (3.0-13.0); NEUTROPHILS % (AUTO) 54.5 % (40.0-77.0); PLATELET COUNT (AUTO) 269 K/uL (130-400); RED CELL DISTRIBUTION WIDTH 14.1 % (11.0-15.5); WHITE BLOOD COUNT (AUTO) 5.2 K/uL (4.8-10.8)
[2021-11-22] MEDS: HEPARIN 5,000 UNIT VIAL SQ SCH ×3 (06:27→21:53)
[2021-11-22 07:30] VITALS: BP 139/89
[2021-11-22] MEDS: FAMOTIDINE 20MG VIAL IV SCH (09:21)
[2021-11-22] MEDS: VANCOMYCIN 1G/250ML KIT 250 ML IV SCH (09:22)
[2021-11-22 11:00] VITALS: BP 156/90
[2021-11-22 16:00] VITALS: BP 131/81
[2021-11-22 20:00] VITALS: BP 156/83
[2021-11-22] MEDS ORDERED: DEXTROSE 50%-WATER 50 ML DISP.SYRIN IV PRN (20:00)
[2021-11-22] MEDS ORDERED: GLUCAGON 1MG KIT 1 MG ML IM PRN (20:00)
[2021-11-22] MEDS: INSULIN HUMULIN R 100 UNIT/ML 3ML SQ SCH (21:53)
[2021-11-23] VITALS: BP 129/79
[2021-11-23] MEDS: CEFEPIME HCL 2 GM VIAL IVP SCH (03:56)
[2021-11-23 04:00] VITALS: BP 128/80
[2021-11-23] MEDS: HEPARIN 5,000 UNIT VIAL SQ SCH ×2 (05:29→14:14)
[2021-11-23] MEDS: INSULIN HUMULIN R 100 UNIT/ML 3ML SQ SCH ×2 (06:13→13:03)
[2021-11-23 09:37] VITALS: BP 136/87
[2021-11-23] MEDS ORDERED: 0.9% NACL 250ML 250 ML ONE (10:05)
[2021-11-23] MEDS: FAMOTIDINE 20MG VIAL IV SCH (10:24)
[2021-11-23] MEDS: VANCOMYCIN 1G/250ML KIT 250 ML IV SCH (10:24)
[2021-11-23 12:33] VITALS: BP 120/84
[2021-11-23] MEDS ORDERED: SULF1TAB42 PO (13:52)
== END 2021-11-23 16:00 | disposition home or self-care (01) | DRG 638 ==
LOC: EDH 00:25 → EDHIP 00:26 → 4CH 05:06
PROVIDERS: ADMIT Internal Medicine; ATTEND Internal Medicine
DX: E11.621 Type 2 diabetes mellitus with foot ulcer (principal); L03.115 Cellulitis of right lower limb; E11.65 Type 2 diabetes mellitus with hyperglycemia; N17.9 Acute kidney failure, unspecified; Z89.512 Acquired absence of left leg below knee; E78.5 Hyperlipidemia, unspecified; I10 Essential (primary) hypertension; J40 Bronchitis, not specified as acute or chronic; L97.519 Non-pressure chronic ulcer of other part of right foot with unspecified severity
CPT/HCPCS: 36415; 73660; 80048; 80053; 82948; 83036; 83605; 83735; 84100; 84145; 85025; 85610; 85651; 85730; 86140; 87040; 87070; 87076; 87077; 87186; G0378; J0692; J1644; J1815; J3370; J3490; J7050

== ENCOUNTER 2021-11-26 12:52 | Emergency (ER) | payer OTHER ==
[~2021-11-26] VITALS: Ht 167.6 cm; Wt 71.7 kg
[~2021-11-26 12:52] MED LIST changes: -ACET-2247 PO; -ALBU8.5H8 IH; -AMOX1TAB16 PO; +ATOR10 PO; -CLIN-141 PO; +LISI10TA24 PO; +METF-446 PO; +SITA100T12 PO; +SULF1TAB42 PO
[2021-11-26 13:41] LABS: BASOPHILS % (AUTO) 0.3 % (0.0-5.0); EOSINOPHILS % (AUTO) 1.4 % (0.0-8.0); HEMATOCRIT 26.6 % (42-54); LYMPHOCYTES % (AUTO) 32.1 % (21.0-51.0); MEAN CORPUSCULAR HEMOGLOBIN 27.9 pg (27.0-33.0); MEAN CORPUSCULAR HGB CONC 32.7 g/dL (32.0-36.0); MEAN CORPUSCULAR VOLUME 85.3 fL (79-99); NEUTROPHILS % (AUTO) 58.7 % (40.0-77.0); PLATELET COUNT (AUTO) 378 K/uL (130-400); RED BLOOD CELL COUNT(AUTO) 3.12 MIL/uL (4.50-6.20); RED CELL DISTRIBUTION WIDTH 14.2 % (11.0-15.5); WHITE BLOOD COUNT (AUTO) 5.8 K/uL (4.8-10.8)
[2021-11-26 14:06] LABS: CREATININE 1.3 mg/dL (0.5-1.5); POTASSIUM 5.6 mmol/L (3.5-5.1)
[2021-11-26 14:11] LABS: CRP QUANTITATIVE 30.5 mg/L (0.00-9.0)
[2021-11-26] MEDS: 0.9%NACL 1000ML 1,000 ML IV ONE (14:15)
[2021-11-26] MEDS: INSULIN HUMULIN R 100 UNIT/ML 3ML IJ ONE (14:54)
[2021-11-26 15:03] LABS: ERYTHROCYTE SEDIMENTATION RATE 98 MM/HR (0-15)
[2021-11-26 15:18] VITALS: BP 169/97
[2021-11-26] MEDS ORDERED: SULF1TAB42 PO (15:43)
== END 2021-11-26 15:55 | disposition home or self-care (01) ==
LOC: EDH 12:52
DX: E11.621 Type 2 diabetes mellitus with foot ulcer (principal); L97.519 Non-pressure chronic ulcer of other part of right foot with unspecified severity; E11.65 Type 2 diabetes mellitus with hyperglycemia; D64.9 Anemia, unspecified; E86.9 Volume depletion, unspecified; E78.5 Hyperlipidemia, unspecified; I10 Essential (primary) hypertension
CPT/HCPCS: 99284; 96374; 96361; 80053; 85025; 85651; 87040 ×2; 83605; 86140; 36415; 73630; J1815; J7030

== ENCOUNTER 2022-12-23 09:54 | Inpatient (IN) | payer MEDICAID, OTHER ==
[~2022-12-23] VITALS: Ht 165.1 cm; Wt 57.8 kg
[2022-12-23] VITALS (12 sets, daily range): BP systolic 111–138; BP diastolic 54–75; PULSE 81–92; RESP 13–45; O2SAT 99–100
[2022-12-23 10:40] LABS: HEMATOCRIT 26.1 % (42-54); MEAN CORPUSCULAR HEMOGLOBIN 27.7 pg (27.0-33.0); MEAN CORPUSCULAR HGB CONC 33.3 g/dL (32.0-36.0); MEAN CORPUSCULAR VOLUME 83.1 fL (79-99); PLATELET COUNT (AUTO) 264 K/uL (130-400); RED BLOOD CELL COUNT(AUTO) 3.14 MIL/uL (4.50-6.20); RED CELL DISTRIBUTION WIDTH 13.6 % (11.0-15.5); WHITE BLOOD COUNT (AUTO) 7.1 K/uL (4.8-10.8)
[2022-12-23 10:47] LABS: ABG OXYGEN SATURATION 61.6 % (95.0-99.0); BASE EXCESS,VENOUS BLOOD GAS -14.4 (-2.0-3.0); HCO3,VENOUS BLOOD GAS 12.9 (21.0-28.0); PCO2,VENOUS BLOOD GAS 35 (35-48); PH,VENOUS BLOOD GAS 7.182 (7.350-7.450); PO2,VENOUS BLOOD GAS 39.1 mmHg (35.0-45.0); VENT MODE, BG VBG (ROOM AIR)
[2022-12-23 10:53] LABS: AMPHET/METH SCREEN,URINE NEGATIVE (NEGATIVE); APPEARANCE,URINE CLOUDY (CLEAR); BARBITURATE SCREEN, URINE NEGATIVE (NEGATIVE); BENZODIAZEPINES SCREEN,URINE NEGATIVE (NEGATIVE); BILIRUBIN,URINE NEGATIVE (NEGATIVE); CANNABINOID SCREEN,URINE NEGATIVE (NEGATIVE); COCAINE SCREEN,URINE NEGATIVE (NEGATIVE); COLOR,URINE YELLOW (YELLOW); GLUCOSE, URINE (UA) >=1000 mg/dL (NEGATIVE); KETONES,URINE NEGATIVE (NEGATIVE); LEUKOCYTE ESTERASE ,URINE NEGATIVE Leu/uL (NEGATIVE); NITRATE,URINE NEGATIVE (NEGATIVE); OPIATE SCREEN,URINE NEGATIVE (NEGATIVE); PHENCYCLIDINE SCREEN,URINE NEGATIVE (NEGATIVE); PROTEIN,URINE 70 mg/dL (NEGATIVE); UROBILINOGEN,URINE 0.2 mg/dL (0.2-1.0)
[2022-12-23 10:59] LABS: ADD UA MICROSCOPIC YES
[2022-12-23] MEDS ORDERED: ONDANSETRON 4MG INJ IVP ONE ×2 (11:00)
[2022-12-23] MEDS ORDERED: 0.9%NACL 1000ML 1,000 ML IV SCH ×2 (11:00→12:00)
[2022-12-23 11:03] LABS: MUCUS,URINE RARE LPF (None Seen); SQUAMOUS EPITHELIAL CELL,UR RARE /HPF (0-2)
[2022-12-23 11:05] LABS: ALBUMIN 3.4 g/dL (3.5-5.0); BILIRUBIN,TOTAL 0.4 mg/dL (0.2-1.0); TOTAL PROTEIN, SERUM 7.4 g/dL (6.0-8.3)
[2022-12-23] MEDS ORDERED: CALCIUM GLUC 1GM/10ML VIAL IV STA (11:26)
[2022-12-23] MEDS ORDERED: 0.9%NACL 1000ML 1,000 ML IV ONE (11:30)
[2022-12-23] MEDS ORDERED: INSULIN REGULAR, HUMAN 3ML 100 UNIT in 0.9%NACL 100ML 99 ML IV SCH ×2 (11:30)
[2022-12-23 11:31] LABS: MAGNESIUM 1.8 mg/dL (1.80-2.40); PHOSPHORUS 10.7 mg/dL (2.5-4.9)
[2022-12-23] MEDS ORDERED: INSULIN HUMULIN R 100 UNIT/ML 3ML ONE (11:36)
[2022-12-23 11:49] LABS: LYMPHOCYTES % (MANUAL) 13 % (22-44); MONOCYTES % (MANUAL) 9 % (2-9); SEGMENTED NEUTROPHILS % 78 % (40-70); TOTAL CELLS COUNTED 100
[2022-12-23 11:50] LABS: MAN.DIFF COMMENT-IMPRESSION MANUAL DIFFERENTIAL; PLATELET MORPHOLOGY COMMENT ADEQUATE
[2022-12-23 12:00] LABS: ABG BASE EXCESS -18.3 mmol/L (-2.0-3.0); ABG HCO3 9.5 mmol/L (21.0-28.0); ABG OXYGEN SATURATION 96.6 % (95.0-99.0); ABG PCO2 30 mmHg (35-48); ABG PH 7.124 (7.35-7.450); CARBON MONOXIDE 0.4; DEVICE COMMENT RBMARIA; HHb 3.4; VENT MODE, BG RA (ROOM AIR)
[2022-12-23] MEDS ORDERED: MAG/ALUM/SIMETH 30 ML UDCUP PO PRN (12:00)
[2022-12-23] MEDS ORDERED: MAGNESIUM 2GM PREMIX 50ML 50 ML IV SCH (12:00)
[2022-12-23] MEDS ORDERED: INSULIN REGULAR, HUMAN 3ML 100 UNIT in 0.9%NACL 100ML 100 ML IV SCH ×2 (12:00)
[2022-12-23] MEDS ORDERED: POTASSIUM CHLORIDE 10MEQ/100ML 100 ML IV PRN (12:00)
[2022-12-23] MEDS ORDERED: NITROGLYCERIN 0.4 MG SL TAB SL PRN (12:00)
[2022-12-23] MEDS ORDERED: HYDROCODONE/ACETAMINOPHEN 5/325 MG TAB PO PRN ×2 (12:00)
[2022-12-23] MEDS ORDERED: ACETAMINOPHEN 325 MG TAB PO PRN ×2 (12:00)
[2022-12-23] MEDS ORDERED: HYDROMORPHONE 1 MG INJ IV PRN (12:00)
[2022-12-23] MEDS ORDERED: ONDANSETRON 4MG INJ IV PRN (12:00)
[2022-12-23] MEDS ORDERED: LACTULOSE 20 GM/30 ML UDCUP PO PRN (12:00)
[2022-12-23] MEDS ORDERED: GUAIFENESIN-DM 200/20 MG 10 ML PO PRN (12:00)
[2022-12-23] MEDS ORDERED: DIPHENHYDRAMINE HCL 25 MG CAPSULE PO PRN (12:00)
[2022-12-23] MEDS ORDERED: DiphenhydrAMINE HCL 50 MG/ML VIAL IV PRN (12:00)
[2022-12-23 13:27] LABS: THYROID STIMULATING HORMONE 0.7 uIU/mL (0.36-3.74)
[2022-12-23] MEDS: HEPARIN 5,000 UNIT VIAL SQ SCH ×2 (13:36→20:36)
[2022-12-23 13:47] LABS: INR < 0.93 (0.85-1.15)
[2022-12-23 13:48] LABS: PARTIAL THROMBOPLASTIN TIME 27.9 SEC (26.3-35.5)
[2022-12-23 13:53] LABS: % IRON SATURATION 29.8 % (30-44)
[2022-12-23 14:12] LABS: POTASSIUM 6.1 mmol/L (3.5-5.1)
[2022-12-23 14:13] LABS: CREATININE 11.4 mg/dL (0.5-1.5)
[2022-12-23] MEDS ORDERED: LIRA0.6P SQ (15:09)
[2022-12-23] MEDS ORDERED: SODIUM BICARB 50MEQ 50ML VIAL IV ONE (15:30)
[2022-12-23 16:33] LABS: POTASSIUM 5.6 mmol/L (3.5-5.1)
[2022-12-23 16:43] LABS: CREATININE 11.2 mg/dL (0.5-1.5)
[2022-12-23] MEDS ORDERED: DEXTROSE 5 %-0.45 % NACL 1,000 ML IV SCH (19:00)
[2022-12-23] MEDS: FAMOTIDINE 20MG TAB PO SCH (20:37)
[2022-12-23 20:41] LABS: CREATININE,URINE RANDOM 190 mg/dL (30-135); SODIUM,URINE RANDOM 26 mmol/l (40-220)
[2022-12-23 20:58] LABS: POTASSIUM 4.3 mmol/L (3.5-5.1)
[2022-12-23 21:00] LABS: CREATININE 10.9 mg/dL (0.5-1.5)
[2022-12-23] MEDS ORDERED: FAMOTIDINE 20MG VIAL IV SCH (21:00)
[2022-12-24] VITALS (25 sets, daily range): BP systolic 98–164; BP diastolic 60–97; PULSE 76–89; RESP 11–83; O2SAT 96–98
[2022-12-24 00:07] LABS: POTASSIUM 4.7 mmol/L (3.5-5.1)
[2022-12-24 00:19] LABS: CREATININE 10.6 mg/dL (0.5-1.5)
[2022-12-24 04:14] LABS: BASOPHILS # (AUTO) 0.01 K/uL (0.00-0.20); BASOPHILS % (AUTO) 0.1 % (0.0-5.0); EOSINOPHILS # (AUTO) 0.01 K/uL (0.00-0.70); EOSINOPHILS % (AUTO) 0.1 % (0.0-8.0); HEMATOCRIT 21.3 % (42-54); IMMATURE GRANULOCYTE ABSOLUTE 0.02 K/uL (0-1); LYMPHOCYTES # (AUTO) 1.4 K/uL (1.0-4.8); LYMPHOCYTES % (AUTO) 15.7 % (21.0-51.0); MEAN CORPUSCULAR HEMOGLOBIN 28.4 pg (27.0-33.0); MEAN CORPUSCULAR HGB CONC 35.2 g/dL (32.0-36.0); MEAN CORPUSCULAR VOLUME 80.7 fL (79-99); MONOCYTES # (AUTO) 0.9 K/uL (0.1-1.0); MONOCYTES % (AUTO) 9.9 % (3.0-13.0); NEUTROPHILS # (AUTO) 6.4 K/uL (1.8-7.7); PLATELET COUNT (AUTO) 240 K/uL (130-400); RED BLOOD CELL COUNT(AUTO) 2.64 MIL/uL (4.50-6.20); RED CELL DISTRIBUTION WIDTH 13.5 % (11.0-15.5); WHITE BLOOD COUNT (AUTO) 8.7 K/uL (4.8-10.8)
[2022-12-24 04:25] LABS: ALBUMIN 2.6 g/dL (3.5-5.0); BILIRUBIN,TOTAL 0.2 mg/dL (0.2-1.0); MAGNESIUM 1.8 mg/dL (1.80-2.40); PHOSPHORUS 8.2 mg/dL (2.5-4.9); POTASSIUM 4.2 mmol/L (3.5-5.1); TOTAL PROTEIN, SERUM 5.8 g/dL (6.0-8.3)
[2022-12-24 04:27] LABS: CREATININE 10.2 mg/dL (0.5-1.5)
[2022-12-24] MEDS: D5W-1/2 NS/20MEQ KCL 1,000 ML IV SCH ×3 (05:23→22:05)
[2022-12-24] MEDS: HEPARIN 5,000 UNIT VIAL SQ SCH ×3 (08:17→20:21)
[2022-12-24 08:38] LABS: POTASSIUM 4.7 mmol/L (3.5-5.1)
[2022-12-24 08:44] LABS: CREATININE 10.2 mg/dL (0.5-1.5)
[2022-12-24] MEDS ORDERED: LACTATED RINGERS 1000ML IV ONE (09:00)
[2022-12-24] MEDS ORDERED: LACTATED RINGERS 1000ML IV SCH (09:00)
[2022-12-24 12:30] LABS: POTASSIUM 4.5 mmol/L (3.5-5.1)
[2022-12-24 12:35] LABS: CREATININE 9.5 mg/dL (0.5-1.5)
[2022-12-24] MEDS ORDERED: SODIUM BICARB 8.4% 50ML SYRINGE IVP SCH ×2 (13:30)
[2022-12-24] MEDS: SODIUM BICARB 8.4% 50ML SYRING 150 MEQ in DEXTROSE 5%-WATER 1,000 ML IVP SCH (13:39)
[2022-12-24] MEDS ORDERED: SODIUM BICARB 50MEQ 50ML VIAL IV SCH (14:00)
[2022-12-24 16:14] LABS: POTASSIUM 4.1 mmol/L (3.5-5.1)
[2022-12-24 16:19] LABS: CREATININE 9.2 mg/dL (0.5-1.5)
[2022-12-24 20:22] LABS: POTASSIUM 4.2 mmol/L (3.5-5.1)
[2022-12-24 20:48] LABS: CREATININE 8.6 mg/dL (0.5-1.5)
[2022-12-25] VITALS (18 sets, daily range): BP systolic 111–164; BP diastolic 68–96; PULSE 78–88; RESP 11–37; O2SAT 97–98
[2022-12-25 00:59] LABS: CREATININE 7.6 mg/dL (0.5-1.5); POTASSIUM 3.7 mmol/L (3.5-5.1)
[2022-12-25 04:30] LABS: ALBUMIN 2.7 g/dL (3.5-5.0); BILIRUBIN,TOTAL 0.3 mg/dL (0.2-1.0); CREATININE 7.3 mg/dL (0.5-1.5); POTASSIUM 3.6 mmol/L (3.5-5.1); TOTAL PROTEIN, SERUM 5.8 g/dL (6.0-8.3)
[2022-12-25] MEDS: 0.9%NACL 1000ML 1,000 ML IV SCH ×2 (05:36→12:10)
[2022-12-25 05:37] LABS: BASOPHILS # (AUTO) 0.02 K/uL (0.00-0.20); BASOPHILS % (AUTO) 0.3 % (0.0-5.0); EOSINOPHILS # (AUTO) 0.02 K/uL (0.00-0.70); EOSINOPHILS % (AUTO) 0.3 % (0.0-8.0); HEMATOCRIT 21.1 % (42-54); IMMATURE GRANULOCYTE ABSOLUTE 0.03 K/uL (0-1); LYMPHOCYTES # (AUTO) 1.7 K/uL (1.0-4.8); LYMPHOCYTES % (AUTO) 28.2 % (21.0-51.0); MEAN CORPUSCULAR HEMOGLOBIN 28.1 pg (27.0-33.0); MEAN CORPUSCULAR HGB CONC 34.1 g/dL (32.0-36.0); MEAN CORPUSCULAR VOLUME 82.4 fL (79-99); MONOCYTES # (AUTO) 0.6 K/uL (0.1-1.0); MONOCYTES % (AUTO) 10.1 % (3.0-13.0); NEUTROPHILS # (AUTO) 3.5 K/uL (1.8-7.7); NEUTROPHILS % (AUTO) 60.6 % (40.0-77.0); PLATELET COUNT (AUTO) 226 K/uL (130-400); RED BLOOD CELL COUNT(AUTO) 2.56 MIL/uL (4.50-6.20); RED CELL DISTRIBUTION WIDTH 13.7 % (11.0-15.5); WHITE BLOOD COUNT (AUTO) 5.9 K/uL (4.8-10.8)
[2022-12-25] MEDS ORDERED: INSULIN HUMULIN R 100 UNIT/ML 3ML SQ SCH (07:30)
[2022-12-25] MEDS ORDERED: KCL 20 MEQ ERTAB PO PRN (08:00)
[2022-12-25] MEDS ORDERED: POTASSIUM CHLORIDE 10% ELIXIR 20 MEQ/15 ML UDCUP PO PRN (08:00)
[2022-12-25] MEDS ORDERED: DEXTROSE 50%-WATER 50 ML DISP.SYRIN IV PRN (08:30)
[2022-12-25] MEDS ORDERED: GLUCAGON 1MG KIT 1 MG ML IM PRN (08:30)
[2022-12-25] MEDS: INSULIN GLARGINE 100 UNITS/ML 10 ML VIAL SQ SCH ×2 (08:57→21:59)
[2022-12-25] MEDS: HEPARIN 5,000 UNIT VIAL SQ SCH ×3 (08:57→21:55)
[2022-12-25] MEDS: LACTATED RINGERS 1000ML 1,000 ML IV SCH ×2 (09:00→18:22)
[2022-12-25] MEDS: INSULIN HUMULIN R 100 UNIT/ML 3ML SQ SCH ×3 (11:54→22:01)
[2022-12-25 12:10] LABS: CREATININE 6.2 mg/dL (0.5-1.5); POTASSIUM 3.9 mmol/L (3.5-5.1)
[2022-12-25] MEDS: SODIUM BICARB 8.4% 50ML SYRING 150 MEQ in DEXTROSE 5%-WATER 1,000 ML IVP SCH (12:30)
[2022-12-25] MEDS: FAMOTIDINE 20MG TAB PO SCH (22:03)
[2022-12-26] VITALS (9 sets, daily range): BP systolic 145–156; BP diastolic 89–100; PULSE 80–85; RESP 14–18; O2SAT 96–99
[2022-12-26 04:23] LABS: BASOPHILS # (AUTO) 0.02 K/uL (0.00-0.20); BASOPHILS % (AUTO) 0.3 % (0.0-5.0); EOSINOPHILS # (AUTO) 0.04 K/uL (0.00-0.70); EOSINOPHILS % (AUTO) 0.6 % (0.0-8.0); HEMATOCRIT 22.2 % (42-54); IMMATURE GRANULOCYTE ABSOLUTE 0.01 K/uL (0-1); LYMPHOCYTES # (AUTO) 1.9 K/uL (1.0-4.8); LYMPHOCYTES % (AUTO) 28.9 % (21.0-51.0); MEAN CORPUSCULAR HEMOGLOBIN 27.7 pg (27.0-33.0); MEAN CORPUSCULAR HGB CONC 33.3 g/dL (32.0-36.0); MEAN CORPUSCULAR VOLUME 83.1 fL (79-99); MONOCYTES # (AUTO) 0.6 K/uL (0.1-1.0); MONOCYTES % (AUTO) 9.8 % (3.0-13.0); NEUTROPHILS # (AUTO) 3.9 K/uL (1.8-7.7); NEUTROPHILS % (AUTO) 60.2 % (40.0-77.0); PLATELET COUNT (AUTO) 236 K/uL (130-400); RED BLOOD CELL COUNT(AUTO) 2.67 MIL/uL (4.50-6.20); RED CELL DISTRIBUTION WIDTH 13.7 % (11.0-15.5); WHITE BLOOD COUNT (AUTO) 6.5 K/uL (4.8-10.8)
[2022-12-26] MEDS: LACTATED RINGERS 1000ML 1,000 ML IV SCH ×2 (04:30→14:30)
[2022-12-26 04:53] LABS: ALBUMIN 2.7 g/dL (3.5-5.0); BILIRUBIN,TOTAL 0.2 mg/dL (0.2-1.0); CREATININE 4.7 mg/dL (0.5-1.5); POTASSIUM 4.1 mmol/L (3.5-5.1); TOTAL PROTEIN, SERUM 6.2 g/dL (6.0-8.3)
[2022-12-26] MEDS: INSULIN HUMULIN R 100 UNIT/ML 3ML SQ SCH ×4 (07:30→22:23)
[2022-12-26] MEDS: HEPARIN 5,000 UNIT VIAL SQ SCH ×3 (10:32→22:26)
[2022-12-26] MEDS: INSULIN GLARGINE 100 UNITS/ML 10 ML VIAL SQ SCH ×2 (10:33→22:24)
[2022-12-27] VITALS (8 sets, daily range): BP systolic 100–157; BP diastolic 53–91; PULSE 76–90; RESP 16–18; O2SAT 99–100
[2022-12-27] MEDS: LACTATED RINGERS 1000ML 1,000 ML IV SCH ×3 (00:30→21:05)
[2022-12-27] MEDS: INSULIN HUMULIN R 100 UNIT/ML 3ML SQ SCH ×4 (05:43→21:09)
[2022-12-27] MEDS: INSULIN GLARGINE 100 UNITS/ML 10 ML VIAL SQ SCH ×2 (06:16→21:10)
[2022-12-27 08:56] LABS: HEMATOCRIT 22.3 % (42-54); MEAN CORPUSCULAR HEMOGLOBIN 28.1 pg (27.0-33.0); MEAN CORPUSCULAR HGB CONC 33.2 g/dL (32.0-36.0); MEAN CORPUSCULAR VOLUME 84.8 fL (79-99); RED BLOOD CELL COUNT(AUTO) 2.63 MIL/uL (4.50-6.20); RED CELL DISTRIBUTION WIDTH 13.7 % (11.0-15.5); WHITE BLOOD COUNT (AUTO) 5.6 K/uL (4.8-10.8)
[2022-12-27 09:05] LABS: CREATININE 2.5 mg/dL (0.5-1.5); POTASSIUM 4.4 mmol/L (3.5-5.1)
[2022-12-27 09:09] LABS: ALBUMIN 2.6 g/dL (3.5-5.0); BILIRUBIN,TOTAL 0.2 mg/dL (0.2-1.0); MAGNESIUM 1.4 mg/dL (1.80-2.40); TOTAL PROTEIN, SERUM 6.3 g/dL (6.0-8.3)
[2022-12-27] MEDS: HEPARIN 5,000 UNIT VIAL SQ SCH ×3 (09:52→21:08)
[2022-12-27] MEDS ORDERED: MAGNESIUM 2GM PREMIX 50ML 50 ML IV SCH (10:30)
[2022-12-27] MEDS: FAMOTIDINE 20MG TAB PO SCH (21:05)
[2022-12-28 04:15] VITALS: BP 126/85; PULSE 80; RESP 18
[2022-12-28] MEDS: INSULIN HUMULIN R 100 UNIT/ML 3ML SQ SCH ×2 (05:27→11:30)
[2022-12-28] MEDS: INSULIN GLARGINE 100 UNITS/ML 10 ML VIAL SQ SCH (05:28)
[2022-12-28 05:33] LABS: HEMATOCRIT 23.4 % (42-54); MEAN CORPUSCULAR HEMOGLOBIN 27.8 pg (27.0-33.0); MEAN CORPUSCULAR HGB CONC 32.9 g/dL (32.0-36.0); MEAN CORPUSCULAR VOLUME 84.5 fL (79-99); RED BLOOD CELL COUNT(AUTO) 2.77 MIL/uL (4.50-6.20); RED CELL DISTRIBUTION WIDTH 13.2 % (11.0-15.5); WHITE BLOOD COUNT (AUTO) 6.6 K/uL (4.8-10.8)
[2022-12-28] MEDS: LACTATED RINGERS 1000ML 1,000 ML IV SCH (06:08)
[2022-12-28 07:38] VITALS: BP 134/89; PULSE 91; RESP 18
[2022-12-28] MEDS: HEPARIN 5,000 UNIT VIAL SQ SCH (09:54)
[2022-12-28 10:28] LABS: BILIRUBIN,TOTAL 0.2 mg/dL (0.2-1.0); POTASSIUM 4.5 mmol/L (3.5-5.1); TOTAL PROTEIN, SERUM 6.8 g/dL (6.0-8.3)
[2022-12-28 12:00] VITALS: BP 114/79; PULSE 87; RESP 18
[2022-12-28 16:00] VITALS: BP 133/93; PULSE 89; RESP 17
== END 2022-12-28 17:30 | disposition home or self-care (01) | DRG 871 ==
LOC: EDH 09:54 → EDHIP 09:55 → 2BH 14:53 → 4BH 12-27 03:12
PROVIDERS: ADMIT Internal Medicine; ATTEND Internal Medicine
DX: A41.9 Sepsis, unspecified organism (principal); E11.10 Type 2 diabetes mellitus with ketoacidosis without coma; N17.9 Acute kidney failure, unspecified; E87.1 Hypo-osmolality and hyponatremia; E87.5 Hyperkalemia; E83.39 Other disorders of phosphorus metabolism; D64.9 Anemia, unspecified; E78.5 Hyperlipidemia, unspecified; I10 Essential (primary) hypertension; Z79.84 Long term (current) use of oral hypoglycemic drugs; Z79.4 Long term (current) use of insulin; Z89.511 Acquired absence of right leg below knee; Z89.512 Acquired absence of left leg below knee; Z91.199 Patient's noncompliance with other medical treatment and regimen due to unspecified reason
CPT/HCPCS: 36415; 36600; 76770; 80048; 80053; 80305; 81001; 82010; 82435; 82570; 82803; 82947; 82948; 83036; 83540; 83550; 83605; 83735; 84100; 84132; 84295; 84300; 84443; 85018; 85025; 85027; 85610; 85730; 86850; 86900; 86901; 87040; 87324; 93005; A4344; G0378; J0610; J1644; J1815; J2405; J3475; J3480; J3490; J7030; J7070

== ENCOUNTER 2023-11-11 17:05 | Inpatient (IN) | payer MEDICAID, OTHER ==
[~2023-11-11] VITALS: Ht 167.6 cm; Wt 67.1 kg
[~2023-11-11 17:05] MED LIST changes: +LIRA0.6P SQ; -METF-446 PO; -SITA100T12 PO; -SULF1TAB42 PO
[2023-11-11] MEDS: VANCOMYCIN 1G/250ML KIT 250 ML IV ONE (18:04)
[2023-11-11] MEDS: ZOSYN 3.375GM+NS 50ML 50 ML IVPB STA (18:04)
[2023-11-11] MEDS: ACETAMINOPHEN 500 MG TABLET PO ONE (18:04)
[2023-11-11] MEDS: 0.9%NACL 1000ML 1,845 ML IV ONE (18:05)
[2023-11-11 18:07] LABS: BASOPHILS # (AUTO) 0.01 K/uL (0.00-0.20); BASOPHILS % (AUTO) 0.1 % (0.0-5.0); EOSINOPHILS # (AUTO) 0.03 K/uL (0.00-0.70); EOSINOPHILS % (AUTO) 0.3 % (0.0-8.0); HEMATOCRIT 23.7 % (42-54); IMMATURE GRANULOCYTE ABSOLUTE 0.03 K/uL (0-1); LYMPHOCYTES # (AUTO) 1.2 K/uL (1.0-4.8); LYMPHOCYTES % (AUTO) 13.7 % (21.0-51.0); MEAN CORPUSCULAR HEMOGLOBIN 27.7 pg (27.0-33.0); MEAN CORPUSCULAR HGB CONC 32.5 g/dL (32.0-36.0); MEAN CORPUSCULAR VOLUME 85.3 fL (79-99); MONOCYTES # (AUTO) 0.7 K/uL (0.1-1.0); MONOCYTES % (AUTO) 7.7 % (3.0-13.0); NEUTROPHILS # (AUTO) 6.8 K/uL (1.8-7.7); NEUTROPHILS % (AUTO) 77.9 % (40.0-77.0); PLATELET COUNT (AUTO) 321 K/uL (130-400); RED BLOOD CELL COUNT(AUTO) 2.78 MIL/uL (4.50-6.20); RED CELL DISTRIBUTION WIDTH 13.4 % (11.0-15.5); WHITE BLOOD COUNT (AUTO) 8.8 K/uL (4.8-10.8)
[2023-11-11 18:37] LABS: BILIRUBIN,TOTAL 0.4 mg/dL (0.2-1.0); CREATININE 2.3 mg/dL (0.5-1.3); POTASSIUM 4.6 mmol/L (3.5-5.1); TOTAL PROTEIN, SERUM 7.9 g/dL (6.0-8.3)
[2023-11-11] MEDS: DEXTROSE 50%-WATER 50 ML DISP.SYRIN IV ONE (20:20)
[2023-11-11 21:17] LABS: APPEARANCE,URINE CLOUDY (CLEAR); BILIRUBIN,URINE NEGATIVE (NEGATIVE); COLOR,URINE LIGHT-YELLOW (YELLOW); GLUCOSE, URINE (UA) NEGATIVE (NEGATIVE); KETONES,URINE NEGATIVE (NEGATIVE); LEUKOCYTE ESTERASE ,URINE NEGATIVE Leu/uL (NEGATIVE); NITRATE,URINE NEGATIVE (NEGATIVE); OCCULT BLOOD,URINE SMALL (NEGATIVE); PH,URINE 5.5 (5.0-8.0); PROTEIN,URINE 100 mg/dL (NEGATIVE); UROBILINOGEN,URINE 0.2 mg/dL (0.2-1.0)
[2023-11-11 21:26] LABS: ADD UA MICROSCOPIC YES
[2023-11-11 21:27] LABS: BACTERIA,URINE MANY /HPF (None Seen); MUCUS,URINE FEW LPF (None Seen)
[2023-11-11] MEDS ORDERED: KCL 20 MEQ ERTAB PO PRN (22:30)
[2023-11-11] MEDS ORDERED: POTASSIUM CHLORIDE 20MEQ/100ML 100 ML IV PRN (22:30)
[2023-11-11] MEDS ORDERED: GLUCAGON 1MG KIT 1 MG ML IM PRN (22:30)
[2023-11-11] MEDS ORDERED: ACETAMINOPHEN 325 MG TAB PO PRN ×2 (22:30)
[2023-11-11] MEDS ORDERED: POTASSIUM CHLORIDE 10% ELIXIR 20 MEQ/15 ML UDCUP PO PRN (22:30)
[2023-11-11] MEDS ORDERED: VANCOMYCIN PROTOCOL PER PHARMACY IV PRN (22:30)
[2023-11-11 23:40] VITALS: BP 152/91; PULSE 85; RESP 18; O2SAT 97
[2023-11-12] VITALS (7 sets, daily range): BP systolic 114–157; BP diastolic 68–88; PULSE 73–92; RESP 17–20; O2SAT 99–100
[2023-11-12] MEDS: 0.9%NACL 1000ML 1,000 ML IV SCH (00:24)
[2023-11-12] MEDS ORDERED: LIRA0.6P SQ (00:28)
[2023-11-12] MEDS ORDERED: INSU3INS5 SQ (00:28)
[2023-11-12] MEDS: ZOSYN 3.375GM+NS 50ML 50 ML IV SCH (04:15)
[2023-11-12 04:32] LABS: BASOPHILS # (AUTO) 0.02 K/uL (0.00-0.20); BASOPHILS % (AUTO) 0.2 % (0.0-5.0); EOSINOPHILS # (AUTO) 0.05 K/uL (0.00-0.70); EOSINOPHILS % (AUTO) 0.5 % (0.0-8.0); HEMATOCRIT 22.1 % (42-54); IMMATURE GRANULOCYTE ABSOLUTE 0.03 K/uL (0-1); LYMPHOCYTES # (AUTO) 1.7 K/uL (1.0-4.8); LYMPHOCYTES % (AUTO) 17.1 % (21.0-51.0); MEAN CORPUSCULAR HEMOGLOBIN 28.5 pg (27.0-33.0); MEAN CORPUSCULAR HGB CONC 33.5 g/dL (32.0-36.0); MONOCYTES # (AUTO) 1.1 K/uL (0.1-1.0); MONOCYTES % (AUTO) 10.6 % (3.0-13.0); NEUTROPHILS # (AUTO) 7.1 K/uL (1.8-7.7); NEUTROPHILS % (AUTO) 71.3 % (40.0-77.0); PLATELET COUNT (AUTO) 267 K/uL (130-400); RED CELL DISTRIBUTION WIDTH 13.5 % (11.0-15.5)
[2023-11-12 05:04] LABS: ALBUMIN 2.3 g/dL (3.5-5.0); BILIRUBIN,TOTAL 0.2 mg/dL (0.2-1.0); CREATININE 1.9 mg/dL (0.5-1.3); MAGNESIUM 1.7 mg/dL (1.80-2.40); POTASSIUM 4.5 mmol/L (3.5-5.1); TOTAL PROTEIN, SERUM 6.4 g/dL (6.0-8.3)
[2023-11-12 05:05] LABS: INR 0.97 (0.85-1.15); PARTIAL THROMBOPLASTIN TIME 32.8 SEC (26.3-35.5); PROTHROMBIN TIME 10.3 SEC (9.6-11.6)
[2023-11-12] MEDS: MAGNESIUM 2GM PREMIX 50ML 50 ML IV PRN (05:33)
[2023-11-12 05:56] LABS: ERYTHROCYTE SEDIMENTATION RATE 87 MM/HR (0-15)
[2023-11-12 06:28] LABS: HEMOGLOBIN A1C 7.7 % (4.0-6.0)
[2023-11-12] MEDS: CEFEPIME HCL 2 GM VIAL IVPB SCH (06:38)
[2023-11-12] MEDS: INSULIN HUMULIN R 100 UNIT/ML 3ML SQ SCH (06:38)
[2023-11-12] MEDS: FAMOTIDINE 20MG TAB PO SCH (08:53)
[2023-11-12] MEDS: METRONIDAZOLE 500MG/100ML BAG 100 ML IVPB SCH (14:07)
[2023-11-12] MEDS: INSULIN HUMULIN 70/30 100 UNIT/ML 3ML SQ SCH (19:06)
[2023-11-12] MEDS: DEXTROSE 50%-WATER 50 ML DISP.SYRIN IV PRN (23:16)
[2023-11-13] VITALS (7 sets, daily range): BP systolic 137–163; BP diastolic 84–92; PULSE 76–93; RESP 17–19; O2SAT 99
[2023-11-13 06:43] LABS: BASOPHILS # (AUTO) 0.02 K/uL (0.00-0.20); BASOPHILS % (AUTO) 0.3 % (0.0-5.0); EOSINOPHILS # (AUTO) 0.12 K/uL (0.00-0.70); EOSINOPHILS % (AUTO) 1.5 % (0.0-8.0); HEMATOCRIT 21.2 % (42-54); IMMATURE GRANULOCYTE ABSOLUTE 0.03 K/uL (0-1); LYMPHOCYTES # (AUTO) 1.7 K/uL (1.0-4.8); LYMPHOCYTES % (AUTO) 21.5 % (21.0-51.0); MEAN CORPUSCULAR HEMOGLOBIN 28.3 pg (27.0-33.0); MEAN CORPUSCULAR VOLUME 85.8 fL (79-99); MONOCYTES # (AUTO) 0.8 K/uL (0.1-1.0); MONOCYTES % (AUTO) 10.2 % (3.0-13.0); NEUTROPHILS # (AUTO) 5.2 K/uL (1.8-7.7); NEUTROPHILS % (AUTO) 66.1 % (40.0-77.0); PLATELET COUNT (AUTO) 289 K/uL (130-400); RED BLOOD CELL COUNT(AUTO) 2.47 MIL/uL (4.50-6.20); RED CELL DISTRIBUTION WIDTH 13.6 % (11.0-15.5); WHITE BLOOD COUNT (AUTO) 7.9 K/uL (4.8-10.8)
[2023-11-13 07:00] LABS: ALBUMIN 2.1 g/dL (3.5-5.0); BILIRUBIN,TOTAL 0.2 mg/dL (0.2-1.0); CREATININE 1.7 mg/dL (0.5-1.3); POTASSIUM 4.7 mmol/L (3.5-5.1); TOTAL PROTEIN, SERUM 6.3 g/dL (6.0-8.3)
[2023-11-13 07:53] LABS: B-TYPE NATRIURETIC PEPTIDE 132 pg/mL (0-100)
[2023-11-13 09:58] LABS: HEMATOCRIT 21.2 % (42-54)
[2023-11-13] MEDS: HYDRALAZINE 20MG/ML VIAL IV PRN (14:10)
[2023-11-14] VITALS (8 sets, daily range): BP systolic 134–181; BP diastolic 78–98; PULSE 80–89; RESP 16–22; O2SAT 97–99
[2023-11-14 06:57] LABS: BASOPHILS # (AUTO) 0.01 K/uL (0.00-0.20); BASOPHILS % (AUTO) 0.1 % (0.0-5.0); EOSINOPHILS # (AUTO) 0.15 K/uL (0.00-0.70); EOSINOPHILS % (AUTO) 2.2 % (0.0-8.0); HEMATOCRIT 25.2 % (42-54); IMMATURE GRANULOCYTE ABSOLUTE 0.01 K/uL (0-1); LYMPHOCYTES # (AUTO) 1.7 K/uL (1.0-4.8); LYMPHOCYTES % (AUTO) 24.6 % (21.0-51.0); MEAN CORPUSCULAR HEMOGLOBIN 28.8 pg (27.0-33.0); MEAN CORPUSCULAR HGB CONC 32.9 g/dL (32.0-36.0); MEAN CORPUSCULAR VOLUME 87.5 fL (79-99); MONOCYTES # (AUTO) 0.7 K/uL (0.1-1.0); MONOCYTES % (AUTO) 10.1 % (3.0-13.0); NEUTROPHILS # (AUTO) 4.2 K/uL (1.8-7.7); NEUTROPHILS % (AUTO) 62.9 % (40.0-77.0); PLATELET COUNT (AUTO) 344 K/uL (130-400); RED BLOOD CELL COUNT(AUTO) 2.88 MIL/uL (4.50-6.20); RED CELL DISTRIBUTION WIDTH 13.7 % (11.0-15.5); WHITE BLOOD COUNT (AUTO) 6.7 K/uL (4.8-10.8)
[2023-11-14 07:11] LABS: ALBUMIN 2.3 g/dL (3.5-5.0); BILIRUBIN,TOTAL 0.3 mg/dL (0.2-1.0); CREATININE 1.6 mg/dL (0.5-1.3); POTASSIUM 4.6 mmol/L (3.5-5.1); TOTAL PROTEIN, SERUM 6.8 g/dL (6.0-8.3)
[2023-11-14 07:48] LABS: B-TYPE NATRIURETIC PEPTIDE 119 pg/mL (0-100)
[2023-11-14] MEDS: LISINOPRIL 10 MG TABLET PO SCH (09:00)
[2023-11-14] MEDS: ATORVASTATIN 10 MG TABLET PO SCH (20:24)
[2023-11-14] MEDS: ONDANSETRON 4MG INJ IV PRN (23:31)
[2023-11-15] VITALS (8 sets, daily range): BP systolic 110–167; BP diastolic 85–96; PULSE 73–100; RESP 14–22; O2SAT 96
[2023-11-15 05:54] LABS: BASOPHILS # (AUTO) 0.03 K/uL (0.00-0.20); BASOPHILS % (AUTO) 0.5 % (0.0-5.0); EOSINOPHILS % (AUTO) 1.6 % (0.0-8.0); HEMATOCRIT 25.7 % (42-54); IMMATURE GRANULOCYTE ABSOLUTE 0.02 K/uL (0-1); LYMPHOCYTES # (AUTO) 1.6 K/uL (1.0-4.8); LYMPHOCYTES % (AUTO) 24.6 % (21.0-51.0); MEAN CORPUSCULAR HEMOGLOBIN 28.9 pg (27.0-33.0); MEAN CORPUSCULAR HGB CONC 33.1 g/dL (32.0-36.0); MEAN CORPUSCULAR VOLUME 87.4 fL (79-99); MONOCYTES # (AUTO) 0.6 K/uL (0.1-1.0); NEUTROPHILS # (AUTO) 4.1 K/uL (1.8-7.7); PLATELET COUNT (AUTO) 338 K/uL (130-400); RED BLOOD CELL COUNT(AUTO) 2.94 MIL/uL (4.50-6.20); RED CELL DISTRIBUTION WIDTH 13.8 % (11.0-15.5); WHITE BLOOD COUNT (AUTO) 6.4 K/uL (4.8-10.8)
[2023-11-15 06:26] LABS: B-TYPE NATRIURETIC PEPTIDE 103 pg/mL (0-100)
[2023-11-15 06:34] LABS: ALBUMIN 2.2 g/dL (3.5-5.0); ASPARTATE AMINOTRANSFERASE 13 U/L (10-37); BILIRUBIN,TOTAL 0.2 mg/dL (0.2-1.0); CARBON DIOXIDE 25 mmol/L (21-32); CHLORIDE 109 mmol/L (101-111); CREATININE 1.7 mg/dL (0.5-1.3); GLOMERULAR FILTR. RATE CALC 49 mL/min (>90); GLUCOSE,RANDOM 186 mg/dL (70-105); POTASSIUM 4.7 mmol/L (3.5-5.1); SODIUM SERUM 141 mmol/L (136-145); TOTAL PROTEIN, SERUM 6.7 g/dL (6.0-8.3); UREA NITROGEN, BLOOD 29 mg/dL (7-18)
[2023-11-15 06:35] LABS: ALANINE AMINOTRANSFERASE < 6 U/L (12-78)
[2023-11-15 07:12] LABS: ERYTHROCYTE SEDIMENTATION RATE 97 MM/HR (0-15)
[2023-11-15] MEDS: INSULIN GLARGINE 100 UNITS/ML 10 ML VIAL SQ SCH (08:46)
[2023-11-16] VITALS (7 sets, daily range): BP systolic 143–194; BP diastolic 72–109; PULSE 72–96; RESP 14–20; O2SAT 96–98
[2023-11-16] MEDS: CEFEPIME HCL 2 GM VIAL IVPB SCH (19:25)
[2023-11-17] VITALS (8 sets, daily range): BP systolic 141–172; BP diastolic 84–92; PULSE 79–94; RESP 17–20; O2SAT 98–99
[2023-11-17] MEDS: LOSARTAN 25 MG TABLET PO ONE (09:42)
[2023-11-17] MEDS: LOSARTAN 25 MG TABLET PO SCH (20:49)
[2023-11-18] VITALS (7 sets, daily range): BP systolic 143–179; BP diastolic 83–101; PULSE 75–79; RESP 16–20; O2SAT 98–99
[2023-11-18 04:37] LABS: HEMATOCRIT 29.1 % (42-54); MEAN CORPUSCULAR HEMOGLOBIN 28.5 pg (27.0-33.0); MEAN CORPUSCULAR HGB CONC 32.6 g/dL (32.0-36.0); MEAN CORPUSCULAR VOLUME 87.4 fL (79-99); RED BLOOD CELL COUNT(AUTO) 3.33 MIL/uL (4.50-6.20); RED CELL DISTRIBUTION WIDTH 13.5 % (11.0-15.5); WHITE BLOOD COUNT (AUTO) 5.5 K/uL (4.8-10.8)
[2023-11-18 05:12] LABS: ALBUMIN 2.6 g/dL (3.5-5.0); BILIRUBIN,TOTAL 0.2 mg/dL (0.2-1.0); CREATININE 1.7 mg/dL (0.5-1.3); MAGNESIUM 1.9 mg/dL (1.80-2.40); POTASSIUM 4.5 mmol/L (3.5-5.1); TOTAL PROTEIN, SERUM 7.2 g/dL (6.0-8.3)
[2023-11-18] MEDS: AMLODIPINE 5 MG TAB PO SCH (15:05)
[2023-11-19 03:29] VITALS: BP 129/83; PULSE 75; RESP 22
[2023-11-19 07:50] VITALS: BP 142/95; PULSE 79; RESP 17
[2023-11-19 08:00] VITALS: O2SAT 98
[2023-11-19 12:00] VITALS: BP 156/85; PULSE 76; RESP 17
[2023-11-19 16:00] VITALS: BP 147/90; PULSE 78; RESP 17
[2023-11-19] MEDS ORDERED: AMLO5TAB4 PO (18:14)
[2023-11-19] MEDS ORDERED: ATOR10 PO (18:14)
[2023-11-19] MEDS ORDERED: LOSA-417 PO (18:14)
== END 2023-11-19 20:05 | disposition home or self-care (01) | DRG 565 ==
LOC: EDH 17:05 → EDHIP 17:06 → 4CH 23:36
PROVIDERS: ADMIT Internal Medicine; ATTEND Internal Medicine
PROC: 30233N1 Transfusion of Nonautologous Red Blood Cells into Peripheral Vein, Percutaneous Approach (ICD-10-PCS; principal; 2023-11-13)
DX: T87.89 Other complications of amputation stump (principal); L97.928 Non-pressure chronic ulcer of unspecified part of left lower leg with other specified severity; N39.0 Urinary tract infection, site not specified; M86.8X7 Other osteomyelitis, ankle and foot; L03.031 Cellulitis of right toe; N18.30 Chronic kidney disease, stage 3 unspecified; I12.9 Hypertensive chronic kidney disease with stage 1 through stage 4 chronic kidney disease, or unspecified chronic kidney disease; D64.9 Anemia, unspecified; E11.22 Type 2 diabetes mellitus with diabetic chronic kidney disease; E11.649 Type 2 diabetes mellitus with hypoglycemia without coma; E11.69 Type 2 diabetes mellitus with other specified complication; E78.5 Hyperlipidemia, unspecified; Y83.5 Amputation of limb(s) as the cause of abnormal reaction of the patient, or of later complication, without mention of misadventure at the time of the procedure; Z83.3 Family history of diabetes mellitus; Z89.512 Acquired absence of left leg below knee
CPT/HCPCS: 36415; 36430; 71045; 73630; 73718; 80053; 80061; 81001; 82550; 82948; 83036; 83605; 83735; 83880; 84145; 84484; 85014; 85018; 85025; 85027; 85610; 85651; 85730; 86850; 86900; 86901; 86923; 87040; 87086; 93005; G0378; J0360; J0692; J1815; J2405; J2543; J3370; J3475; J3490; J7070; P9016; A4600